=== PATIENT | male | born 1990 | race Caucasian/White ===

== ENCOUNTER → 2017-10-13 15:37 | Outpatient (CLI) | payer OTHER, SELFPAY ==
[2017-10-13 16:01] LABS: INR 2.09 (0.9-1.1); Prothrombin Time 22.7 seconds (9.4-11.8)
== END ==
PROVIDERS: PCP Family Medicine; Visit Provider Physician Assistant Surgical
DX: Z00.00 Encounter for general adult medical examination without abnormal findings (principal); Z79.01 Long term (current) use of anticoagulants; Z51.81 Encounter for therapeutic drug level monitoring; Z95.2 Presence of prosthetic heart valve
CPT/HCPCS: 36415; 85610

== ENCOUNTER → 2017-10-20 08:48 | Outpatient (CLI) | payer OTHER, SELFPAY ==
[2017-10-20 09:43] LABS: INR 2.49 (0.9-1.1); Prothrombin Time 27.2 seconds (9.4-11.8)
== END ==
PROVIDERS: Visit Provider Physician Assistant Surgical
DX: Z79.01 Long term (current) use of anticoagulants (principal); Z51.81 Encounter for therapeutic drug level monitoring; Z45.2 Encounter for adjustment and management of vascular access device
CPT/HCPCS: 36415; 85610; 85730

== ENCOUNTER → 2017-10-27 11:24 | Outpatient (CLI) | payer OTHER, SELFPAY ==
[2017-10-27 13:07] LABS: INR 2.46 (0.9-1.1); Prothrombin Time 26.8 seconds (9.4-11.8)
== END ==
PROVIDERS: Visit Provider Physician Assistant Surgical
DX: Z00.00 Encounter for general adult medical examination without abnormal findings (principal)
CPT/HCPCS: 36415; 85610; 85730

== ENCOUNTER → 2017-11-03 14:43 | Outpatient (CLI) | payer OTHER, SELFPAY ==
[2017-11-03 15:29] LABS: INR 1.86 (0.9-1.1); Prothrombin Time 20.2 seconds (9.4-11.8)
== END ==
PROVIDERS: Visit Provider Physician Assistant Surgical
DX: Z79.01 Long term (current) use of anticoagulants (principal); Z51.81 Encounter for therapeutic drug level monitoring; Z95.2 Presence of prosthetic heart valve
CPT/HCPCS: 36415; 85610

== ENCOUNTER 2017-11-15 07:37 | Outpatient (CLI) | payer OTHER, SELFPAY ==
[2017-11-15 10:41] LABS: PHA INR Fingerstick 1.7 (0.9-1.1)
== END 2017-11-15 11:04 | disposition home or self-care (01) ==
LOC: ACC 07:39
PROVIDERS: Family Provider Family Medicine; PCP Family Medicine; Visit Provider Thoracic Surgery (Cardiothoracic Vascular Surgery)
DX: Z79.01 Long term (current) use of anticoagulants (principal); Z51.81 Encounter for therapeutic drug level monitoring; Z95.2 Presence of prosthetic heart valve
CPT/HCPCS: 85610; G0463

== ENCOUNTER 2017-11-29 07:46 | Outpatient (CLI) | payer OTHER, SELFPAY ==
[2017-11-29 10:46] LABS: PHA INR Fingerstick 1.8 (0.9-1.1)
== END 2017-11-29 10:48 | disposition home or self-care (01) ==
LOC: ACC 07:47
PROVIDERS: Family Provider Family Medicine; PCP Family Medicine; Visit Provider Thoracic Surgery (Cardiothoracic Vascular Surgery)
DX: Z79.01 Long term (current) use of anticoagulants (principal); Z51.81 Encounter for therapeutic drug level monitoring; Z95.2 Presence of prosthetic heart valve
CPT/HCPCS: 85610; 99211; G0463

== ENCOUNTER 2017-12-27 08:15 | Outpatient (CLI) | payer OTHER, SELFPAY ==
[2017-12-27 14:48] LABS: PHA INR Fingerstick 1.5 (0.9-1.1)
== END 2017-12-27 14:54 | disposition home or self-care (01) ==
LOC: ACC 08:16
PROVIDERS: Family Provider Family Medicine; PCP Family Medicine; Visit Provider Thoracic Surgery (Cardiothoracic Vascular Surgery)
DX: Z79.01 Long term (current) use of anticoagulants (principal); Z51.81 Encounter for therapeutic drug level monitoring; Z95.2 Presence of prosthetic heart valve
CPT/HCPCS: 85610; 99211; G0463

== ENCOUNTER 2018-01-17 09:07 | Outpatient (CLI) | payer OTHER, SELFPAY ==
[2018-01-17 10:02] LABS: PHA INR Fingerstick 1.6 (0.9-1.1)
== END 2018-01-17 10:09 | disposition home or self-care (01) ==
LOC: ACC 09:09
PROVIDERS: PCP Family Medicine; Visit Provider Thoracic Surgery (Cardiothoracic Vascular Surgery)
DX: Z00.00 Encounter for general adult medical examination without abnormal findings (principal); Z79.01 Long term (current) use of anticoagulants; Z51.81 Encounter for therapeutic drug level monitoring; Z95.2 Presence of prosthetic heart valve
CPT/HCPCS: 85610; 99211; G0463

== ENCOUNTER 2018-01-31 09:00 | Outpatient (CLI) | payer OTHER, SELFPAY ==
[2018-01-31 09:57] LABS: PHA INR Fingerstick 1.6 (0.9-1.1)
== END 2018-01-31 09:58 | disposition home or self-care (01) ==
LOC: ACC 09:03
PROVIDERS: Family Provider Family Medicine; PCP Family Medicine; Visit Provider Thoracic Surgery (Cardiothoracic Vascular Surgery)
DX: Z79.01 Long term (current) use of anticoagulants (principal); Z51.81 Encounter for therapeutic drug level monitoring; Z95.2 Presence of prosthetic heart valve
CPT/HCPCS: 85610; 99211; G0463

== ENCOUNTER 2018-02-22 08:33 | Outpatient (CLI) | payer OTHER, SELFPAY ==
[2018-02-22 09:43] LABS: PHA INR Fingerstick 1.6 (0.9-1.1)
== END 2018-02-22 10:01 | disposition home or self-care (01) ==
LOC: ACC 08:37
PROVIDERS: PCP Family Medicine; Visit Provider Thoracic Surgery (Cardiothoracic Vascular Surgery)
DX: Z51.81 Encounter for therapeutic drug level monitoring (principal); Z79.01 Long term (current) use of anticoagulants; Z95.2 Presence of prosthetic heart valve
CPT/HCPCS: 85610; 99211; G0463

== ENCOUNTER 2018-03-08 08:56 | Outpatient (CLI) | payer OTHER, SELFPAY ==
[2018-03-08 11:09] LABS: PHA INR Fingerstick 2.1 (0.9-1.1)
== END 2018-03-08 11:11 | disposition home or self-care (01) ==
LOC: ACC 08:57
PROVIDERS: Family Provider Family Medicine; PCP Family Medicine; Visit Provider Thoracic Surgery (Cardiothoracic Vascular Surgery)
DX: Z51.81 Encounter for therapeutic drug level monitoring (principal); Z79.01 Long term (current) use of anticoagulants; Z95.2 Presence of prosthetic heart valve
CPT/HCPCS: 85610; 99211; G0463

== ENCOUNTER 2018-03-29 08:04 | Outpatient (CLI) | payer OTHER, SELFPAY ==
[2018-03-29 13:35] LABS: PHA INR Fingerstick 1.9 (0.9-1.1)
== END 2018-03-29 13:43 | disposition home or self-care (01) ==
LOC: ACC 08:05
PROVIDERS: Family Provider Family Medicine; PCP Family Medicine; Visit Provider Thoracic Surgery (Cardiothoracic Vascular Surgery)
DX: Z51.81 Encounter for therapeutic drug level monitoring (principal); Z79.01 Long term (current) use of anticoagulants; Z95.2 Presence of prosthetic heart valve
CPT/HCPCS: 85610; 99211; G0463

== ENCOUNTER 2018-05-03 09:47 | Outpatient (CLI) | payer OTHER, SELFPAY ==
[2018-05-03 10:36] LABS: PHA INR Fingerstick 1.7 (0.9-1.1)
== END 2018-05-03 12:14 | disposition home or self-care (01) ==
LOC: ACC 09:48
PROVIDERS: PCP Family Medicine; Visit Provider Thoracic Surgery (Cardiothoracic Vascular Surgery)
DX: Z95.2 Presence of prosthetic heart valve (principal)
CPT/HCPCS: 85610; 99211; G0463

== ENCOUNTER 2018-05-31 08:07 | Outpatient (CLI) | payer OTHER, SELFPAY | END 2018-05-31 13:29 | disposition home or self-care (01) | PROVIDERS: PCP Family Medicine; Visit Provider Thoracic Surgery (Cardiothoracic Vascular Surgery) | DX: Z51.81 Encounter for therapeutic drug level monitoring (principal); Z79.01 Long term (current) use of anticoagulants | CPT/HCPCS: 85610; 99211; G0463 ==

== ENCOUNTER 2018-07-12 09:39 | Outpatient (CLI) | payer OTHER, SELFPAY ==
[2018-07-12 16:38] LABS: PHA INR Fingerstick 2.1 (0.9-1.1)
== END 2018-07-12 16:40 | disposition home or self-care (01) ==
LOC: ACC 09:41
PROVIDERS: PCP Family Medicine; Visit Provider Thoracic Surgery (Cardiothoracic Vascular Surgery)
DX: Z51.81 Encounter for therapeutic drug level monitoring (principal); Z79.01 Long term (current) use of anticoagulants; Z00.00 Encounter for general adult medical examination without abnormal findings; Z95.2 Presence of prosthetic heart valve
CPT/HCPCS: 85610; 99211; G0463

== ENCOUNTER 2018-08-17 08:56 | Outpatient (CLI) | payer OTHER, SELFPAY ==
[2018-08-17 09:32] LABS: PHA INR Fingerstick 1.8 (0.9-1.1)
== END 2018-08-17 09:36 | disposition home or self-care (01) ==
LOC: ACC 08:58
PROVIDERS: PCP Family Medicine; Visit Provider Thoracic Surgery (Cardiothoracic Vascular Surgery)
DX: Z51.81 Encounter for therapeutic drug level monitoring (principal); Z79.01 Long term (current) use of anticoagulants; Z95.2 Presence of prosthetic heart valve
CPT/HCPCS: 85610; 99211; G0463

== ENCOUNTER 2018-09-29 13:06 | Outpatient (CLI) | payer OTHER, MEDICAID, SELFPAY | END 2018-09-29 14:57 | disposition home or self-care (01) | LOC: ACC 13:08 | PROVIDERS: PCP Family Medicine; Visit Provider Thoracic Surgery (Cardiothoracic Vascular Surgery) | DX: Z51.81 Encounter for therapeutic drug level monitoring (principal); Z79.01 Long term (current) use of anticoagulants | CPT/HCPCS: 85610; 99211; G0463 ==

== ENCOUNTER 2018-11-24 08:16 | Outpatient (CLI) | payer MEDICAID, SELFPAY ==
[2018-11-24 11:15] LABS: PHA INR Fingerstick 1.5 (0.9-1.1)
== END 2018-11-24 11:19 | disposition home or self-care (01) ==
LOC: ACC 08:19
PROVIDERS: PCP Internal Medicine Adolescent Medicine; Visit Provider Thoracic Surgery (Cardiothoracic Vascular Surgery)
DX: Z00.00 Encounter for general adult medical examination without abnormal findings (principal); Z51.81 Encounter for therapeutic drug level monitoring; Z79.01 Long term (current) use of anticoagulants
CPT/HCPCS: 85610; 99211; G0463

== ENCOUNTER 2018-12-18 11:02 | Outpatient (CLI) | payer MEDICAID, SELFPAY ==
[2018-12-18 11:52] LABS: PHA INR Fingerstick 1.7 (0.9-1.1)
== END 2018-12-18 11:57 | disposition home or self-care (01) ==
LOC: ACC 11:04
PROVIDERS: PCP Internal Medicine Adolescent Medicine; Visit Provider Thoracic Surgery (Cardiothoracic Vascular Surgery)
DX: Z00.00 Encounter for general adult medical examination without abnormal findings (principal); Z51.81 Encounter for therapeutic drug level monitoring; Z79.01 Long term (current) use of anticoagulants
CPT/HCPCS: 85610; 99211; G0463

== ENCOUNTER 2019-01-16 09:14 | Outpatient (CLI) | payer MEDICAID, SELFPAY ==
[2019-01-16 15:06] LABS: PHA INR Fingerstick 1.6 (0.9-1.1)
== END 2019-01-16 15:17 | disposition home or self-care (01) ==
LOC: ACC 09:15
PROVIDERS: PCP Internal Medicine Adolescent Medicine; Visit Provider Internal Medicine Adolescent Medicine
DX: Z51.81 Encounter for therapeutic drug level monitoring (principal); Z79.01 Long term (current) use of anticoagulants
CPT/HCPCS: 85610; 99211; G0463

== ENCOUNTER 2019-02-15 08:22 | Outpatient (CLI) | payer MEDICAID, SELFPAY ==
[2019-02-15 15:23] LABS: PHA INR Fingerstick 1.7 (0.9-1.1)
== END 2019-02-15 15:25 | disposition home or self-care (01) ==
LOC: ACC 08:22
PROVIDERS: PCP Internal Medicine Adolescent Medicine; Visit Provider Internal Medicine Adolescent Medicine
DX: Z95.2 Presence of prosthetic heart valve (principal); Z51.81 Encounter for therapeutic drug level monitoring; Z79.01 Long term (current) use of anticoagulants
CPT/HCPCS: 85610; 99211; G0463

== ENCOUNTER 2019-06-18 08:47 | Outpatient (CLI) | payer MEDICAID, SELFPAY ==
[2019-06-18 14:49] LABS: PHA INR Fingerstick 2.5 (0.9-1.1)
== END 2019-06-18 14:51 | disposition home or self-care (01) ==
PROVIDERS: Visit Provider Internal Medicine Adolescent Medicine
DX: Z95.2 Presence of prosthetic heart valve (principal); Z51.81 Encounter for therapeutic drug level monitoring; Z79.01 Long term (current) use of anticoagulants
CPT/HCPCS: 85610; 99211; G0463

== ENCOUNTER 2019-07-20 09:07 | Outpatient (CLI) | payer OTHER, SELFPAY ==
[2019-07-20 11:23] LABS: PHA INR Fingerstick 2.1 (0.9-1.1)
== END 2019-07-20 11:26 | disposition home or self-care (01) ==
LOC: ACC 09:10
PROVIDERS: PCP Internal Medicine Adolescent Medicine; Visit Provider Internal Medicine Adolescent Medicine
DX: Z95.2 Presence of prosthetic heart valve (principal); Z51.81 Encounter for therapeutic drug level monitoring; Z79.01 Long term (current) use of anticoagulants
CPT/HCPCS: 85610; 99211; G0463

== ENCOUNTER 2019-09-07 08:13 | Outpatient (CLI) | payer OTHER, SELFPAY ==
[2019-09-07 17:04] LABS: PHA INR Fingerstick 2.1 (0.9-1.1)
== END 2019-09-07 17:05 | disposition home or self-care (01) ==
LOC: ACC 08:15
PROVIDERS: PCP Internal Medicine Adolescent Medicine; Visit Provider Internal Medicine Adolescent Medicine
DX: Z51.81 Encounter for therapeutic drug level monitoring (principal); Z79.01 Long term (current) use of anticoagulants; Z95.2 Presence of prosthetic heart valve
CPT/HCPCS: 85610; 99211; G0463

== ENCOUNTER 2019-10-23 08:35 | Outpatient (CLI) | payer OTHER, SELFPAY ==
[2019-10-23 09:39] LABS: PHA INR Fingerstick 2.7 (0.9-1.1)
== END 2019-10-23 09:41 | disposition home or self-care (01) ==
LOC: ACC 08:36
PROVIDERS: PCP Internal Medicine Adolescent Medicine; Visit Provider Internal Medicine Adolescent Medicine
DX: Z51.81 Encounter for therapeutic drug level monitoring (principal); Z79.01 Long term (current) use of anticoagulants
CPT/HCPCS: 85610; 99211; G0463

== ENCOUNTER 2019-12-03 08:44 | Outpatient (CLI) | payer OTHER, SELFPAY ==
[2019-12-03 09:52] LABS: PHA INR Fingerstick 2.2 (0.9-1.1)
== END 2019-12-03 09:56 | disposition home or self-care (01) ==
LOC: ACC 08:46
PROVIDERS: PCP Internal Medicine Adolescent Medicine; Visit Provider Internal Medicine Adolescent Medicine
DX: Z51.81 Encounter for therapeutic drug level monitoring (principal); Z79.01 Long term (current) use of anticoagulants
CPT/HCPCS: 85610; 99211; G0463

== ENCOUNTER 2020-01-14 09:03 | Outpatient (CLI) | payer OTHER, SELFPAY | END 2020-01-14 15:10 | disposition home or self-care (01) | LOC: ACC 09:05 | PROVIDERS: PCP Nurse Practitioner Family; Visit Provider Internal Medicine Adolescent Medicine | DX: Z51.81 Encounter for therapeutic drug level monitoring (principal); Z79.01 Long term (current) use of anticoagulants | CPT/HCPCS: 85610; 99211; G0463 ==

== ENCOUNTER 2020-03-14 08:53 | Outpatient (CLI) | payer OTHER, SELFPAY ==
[2020-03-14 14:34] LABS: PHA INR Fingerstick 2.4 (0.9-1.1)
== END 2020-03-14 14:41 | disposition home or self-care (01) ==
LOC: ACC 08:56
PROVIDERS: PCP Nurse Practitioner Family; Visit Provider Internal Medicine Adolescent Medicine
DX: Z51.81 Encounter for therapeutic drug level monitoring (principal); Z79.01 Long term (current) use of anticoagulants; Z95.2 Presence of prosthetic heart valve
CPT/HCPCS: 85610; 99211; G0463

== ENCOUNTER 2020-06-20 08:56 | Outpatient (CLI) | payer OTHER, SELFPAY ==
[2020-06-20 14:34] LABS: PHA INR Fingerstick 2.1 (0.9-1.1)
== END 2020-06-20 14:36 | disposition home or self-care (01) ==
LOC: ACC 08:58
PROVIDERS: PCP Internal Medicine Adolescent Medicine; Visit Provider Internal Medicine Adolescent Medicine
DX: Z51.81 Encounter for therapeutic drug level monitoring (principal); Z79.01 Long term (current) use of anticoagulants
CPT/HCPCS: 85610; 99211; G0463

== ENCOUNTER 2020-07-05 19:24 | Emergency (ER) | payer OTHER, SELFPAY ==
[2020-07-05 19:40] VITALS: BP 149/89; PULSE 66; RESP 19; TEMP 36.6; O2SAT 98; BMI 25.0
--- NOTE | 2020-07-05 20:24 | HMH.EDUTC ---
[facility] [place] Impression: Spasm of muscle of lower back Disposition: Home, Self-Care Condition on Discharge: Good Instructions: Low Back Pain, DI for Low Back Pain, DI for Muscle Spasm Additional Instructions: * Tylenol every as directed on package if your doctor has told you that you can take it *Ice 20 minutes every 2 hours for the first 48 hours after the initial injury followed by moist heat every 20 minutes 3-4 times a day to affected area *Muscle relaxer every 8 hours as needed for muscle spasms but remember, it WILL cause drowsiness You cannot take it and drive, operate machinery or care for small children. *Keep this area active, no movement leads to more stiffness, However take it easy and avoid heavy lifting pushing or pulling *Follow up with you family doctor if no improvement for further treatment Make sure to follow up with your Family Doctor on Tuesday if no improvement or any worsening of symptoms Return if needed Straight to ER if any loss of control of bowel or bladder Prescriptions: Cyclobenzaprine HCl [Flexeril 10mg tablet] 10 mg PO TID PRN #15 tab PRN Reason: Muscle Spasm Transmission Status: Received by [facility] #[id number] Referrals: Guillermo Smith MD [Primary Care Provider] - As needed Forms: Work/School Release Time of Disposition: 20:40 Medical Decision Making - Dar Inquiry Pt receiving controlled substance: No Dar was queried for this patient: No Vital Signs: 07/05/20 19:40 Temperature 97.8 F Temperature Source Oral Pulse Rate [Right Brachial] 66 Respiratory Rate 19 Blood Pressure [Right Arm] 149/89 H Blood Pressure Mean [Right Arm] 109 Blood Pressure Source [Right Arm] Automatic Cuff Blood Pressure Position [Right Arm] Sitting 02 Sat by Pulse Oximetry 98 Oxygen Delivery Method Room Air Orders (Tests/Meds): ED MEDICATIONS Discontinued Medications Generic Name Dose Route Start Last Admin Trade Name Freq PRN Reason Stop Dose Admin Cyclobenzaprine HCl 10 mg 07/05/20 20:43 07/05/20 20:47 Cyclobenzaprine 10mg Tablet PO 07/05/20 20:44 10 mg ONCE ONE Administration Methylprednisolone Sodium Succinate 125 mg 07/05/20 20:35 07/05/20 20:47 Methylprednisolone Sod Succ 125mg Vial IM 07/05/20 20:36 125 mg ONCE ONE Administration [facility] [place] - General Stated complaint: back pain Time Seen by Provider: 07/05/20 20:24 Mode of Arrival: Ambulatory Source of Information: Patient Limitations: No Limitations Description of Symptoms (Recalled from Triage Doc. by RN): PATIENT C/O LOWER BACK PAIN X 4 DAYS HEENT Symptoms (Recalled from RN notes): No Resp Symptoms (Recalled from RN notes): No Skin Symptoms (Recalled from RN notes): No MS Symptoms (Recalled from RN notes): No Functional Status (Recalled from RN notes): WNL - History of Present Illness Provider Complaint: Patient states that he was working and climbed over a fence several times and thinks he may have pulled something in his lower back State that ever since he has been having pain in his right lower back area that feels like a spasm or catch States that certain ways he moves the pain is worse and feels better if he lays on the floor Denies loss of control of bowel or bladder - Related Data Home Medications Medication Instructions Recorded Confirmed Sertraline HCl [Zoloft 50mg tablet] 50 mg PO DAILY 07/05/20 07/05/20 Warfarin Sodium 8 mg PO DAILY 07/05/20 07/05/20 Warfarin Sodium [Coumadin 1mg 1 mg PO DAILY 07/05/20 07/05/20 tablet] Previous Rx's Medication Instructions Recorded Cyclobenzaprine HCl [Flexeril 10mg 10 mg PO TID PRN #15 tab 07/05/20 tablet] Allergies Allergy/AdvReac Type Severity Reaction Status Date / Time No Known Allergies Allergy Verified 07/05/20 19:57 - Worker's Comp Is this a Worker's Comp case?: No H History - Hepatitis A Screen Drug use history?: No High risk sexual behaviors?: No History of sexually transmit
[2020-07-05 21:03] VITALS: BP 149/89; PULSE 66; RESP 19; TEMP 36.6; O2SAT 98
== END 2020-07-05 21:07 | disposition home or self-care (01) ==
PROVIDERS: Emergency Provider Nurse Practitioner; PCP Internal Medicine Adolescent Medicine
DX: M62.830 Muscle spasm of back (principal); Z95.2 Presence of prosthetic heart valve; R03.0 Elevated blood-pressure reading, without diagnosis of hypertension; Z79.899 Other long term (current) drug therapy
CPT/HCPCS: 96372; 99202; G0463

== ENCOUNTER 2020-10-14 10:57 | Outpatient (CLI) | payer OTHER, SELFPAY ==
[2020-10-14 12:00] LABS: PHA INR Fingerstick 1.8 (0.9-1.1)
== END 2020-10-14 12:05 | disposition home or self-care (01) ==
LOC: ACC 10:58
PROVIDERS: PCP Nurse Practitioner Family; Visit Provider Internal Medicine Adolescent Medicine
DX: Z79.01 Long term (current) use of anticoagulants (principal)
CPT/HCPCS: 85610; 99211; G0463

== ENCOUNTER → 2020-11-07 13:30 | Outpatient (CLI) | payer OTHER, SELFPAY ==
--- NOTE | 2020-11-07 13:34 | MR_ITS ---
PROCEDURE INFORMATION: Exam: MR Lumbar Spine Without Contrast Exam date and time: 11/07/2020 1:34 PM Age: 30 years old Clinical indication: Low back pain; Additional info: Sciatic leg pain. Lbp worse on RT side. RT leg pain, numbness, and tingling. Symptoms x1yr. No injury or trauma. No prior. TECHNIQUE: Imaging protocol: Multiplanar magnetic resonance images of the lumbar spine without intravenous contrast. COMPARISON: No relevant prior studies available. FINDINGS: Vertebrae: See L4-L5 finding. No acute fractures or abnormal bone marrow signal changes are seen. Spinal cord: Normal signal. No cord compression. L1-L2: No significant disc disease. No significant spinal canal stenosis. No neural foraminal stenosis. L2-L3: No significant disc disease. No significant spinal canal stenosis. No neural foraminal stenosis. L3-L4: No significant disc disease. No significant spinal canal stenosis. No neural foraminal stenosis. L4-L5: At the L4-L5 level is mild bilateral facet joint arthropathy. No significant associated spinal or neural foraminal stenosis is seen. L5-S1: At the L5-S1 level is loss of disc height and signal with a mild diffuse disc bulge with central and right neural foraminal focal protrusions causing mild spinal and right neural foraminal stenosis. Mild associated facet joint arthropathy is seen without significant left-sided spurring but there is a small right osteophyte exacerbating the mild right neural foraminal stenosis. Soft tissues: Unremarkable. IMPRESSION: Mild degenerative changes particularly at L5-S1 as above.
== END ==
PROVIDERS: PCP Nurse Practitioner Family; Visit Provider Internal Medicine Adolescent Medicine
DX: M54.30 Sciatica, unspecified side (principal); Z95.2 Presence of prosthetic heart valve
CPT/HCPCS: 72148; 76376

== ENCOUNTER 2020-12-08 13:32 | Outpatient (CLI) | payer OTHER, SELFPAY ==
[2020-12-08 15:45] LABS: PHA INR Fingerstick 1.9 (0.9-1.1)
== END 2020-12-08 15:49 | disposition home or self-care (01) ==
LOC: ACC 13:33
PROVIDERS: PCP Internal Medicine Adolescent Medicine; Visit Provider Internal Medicine Adolescent Medicine
DX: Z51.81 Encounter for therapeutic drug level monitoring (principal); Z79.01 Long term (current) use of anticoagulants
CPT/HCPCS: 85610; 99211; G0463

== ENCOUNTER 2021-03-09 11:49 | Outpatient (CLI) | payer OTHER, SELFPAY ==
[2021-03-09 14:49] LABS: PHA INR Fingerstick 2.3 (0.9-1.1)
== END 2021-03-09 15:07 | disposition home or self-care (01) ==
LOC: ACC 11:49
PROVIDERS: PCP Internal Medicine Adolescent Medicine; Visit Provider Internal Medicine Adolescent Medicine
DX: Z51.81 Encounter for therapeutic drug level monitoring (principal); Z79.01 Long term (current) use of anticoagulants
CPT/HCPCS: 85610; 99211; G0463

== ENCOUNTER 2021-06-03 12:23 | Outpatient (CLI) | payer OTHER, SELFPAY ==
[2021-06-03 14:53] LABS: PHA INR Fingerstick 1.8 (0.9-1.1)
== END 2021-06-03 14:59 | disposition home or self-care (01) ==
LOC: ACC 12:24
PROVIDERS: PCP Nurse Practitioner Family; Visit Provider Internal Medicine Adolescent Medicine
DX: Z51.81 Encounter for therapeutic drug level monitoring (principal); Z79.01 Long term (current) use of anticoagulants; Z95.2 Presence of prosthetic heart valve
CPT/HCPCS: 85610; 99211; G0463

== ENCOUNTER 2021-07-15 08:26 | Outpatient (CLI) | payer OTHER, SELFPAY ==
[2021-07-15 15:08] LABS: PHA INR Fingerstick 2.5 (0.9-1.1)
== END 2021-07-15 15:24 | disposition home or self-care (01) ==
LOC: ACC 08:27
PROVIDERS: PCP Internal Medicine Adolescent Medicine; Visit Provider Internal Medicine Adolescent Medicine
DX: Z51.81 Encounter for therapeutic drug level monitoring (principal); Z79.01 Long term (current) use of anticoagulants; Z95.2 Presence of prosthetic heart valve
CPT/HCPCS: 85610; 99211; G0463

== ENCOUNTER 2021-09-10 09:16 | Outpatient (CLI) | payer OTHER, SELFPAY ==
[2021-09-10 12:32] LABS: PHA INR Fingerstick 2.2 (0.9-1.1)
== END 2021-09-10 12:33 | disposition home or self-care (01) ==
PROVIDERS: PCP Internal Medicine Adolescent Medicine; Visit Provider Internal Medicine Adolescent Medicine
DX: Z51.81 Encounter for therapeutic drug level monitoring (principal); Z79.01 Long term (current) use of anticoagulants; Z95.2 Presence of prosthetic heart valve
CPT/HCPCS: 85610; 99211; G0463

== ENCOUNTER 2021-12-11 08:31 | Outpatient (CLI) | payer OTHER, SELFPAY | END 2021-12-11 14:37 | disposition home or self-care (01) | LOC: ACC 08:32 | PROVIDERS: PCP Internal Medicine Adolescent Medicine; Visit Provider Internal Medicine Adolescent Medicine | DX: Z51.81 Encounter for therapeutic drug level monitoring (principal); Z79.01 Long term (current) use of anticoagulants | CPT/HCPCS: 85610; 99211; G0463 ==

== ENCOUNTER 2022-04-23 09:34 | Outpatient (CLI) | payer OTHER, SELFPAY ==
[2022-04-23 15:12] LABS: PHA INR Fingerstick 2.1 (0.9-1.1)
== END 2022-04-23 15:37 ==
LOC: ACC 09:34
PROVIDERS: PCP Internal Medicine Adolescent Medicine; Visit Provider Internal Medicine Adolescent Medicine
DX: Z51.81 Encounter for therapeutic drug level monitoring (principal); Z79.01 Long term (current) use of anticoagulants; Z95.2 Presence of prosthetic heart valve
CPT/HCPCS: 85610; 99211; G0463

== ENCOUNTER 2022-06-11 09:21 | Outpatient (CLI) | payer OTHER, SELFPAY ==
[2022-06-11 16:09] LABS: PHA INR Fingerstick 2.5 (0.9-1.1)
== END 2022-06-11 16:30 ==
LOC: ACC 09:22
PROVIDERS: PCP Internal Medicine Adolescent Medicine; Visit Provider Internal Medicine Adolescent Medicine
DX: Z51.81 Encounter for therapeutic drug level monitoring (principal); Z79.01 Long term (current) use of anticoagulants; Z95.2 Presence of prosthetic heart valve
CPT/HCPCS: 85610; 99211; G0463

== ENCOUNTER → 2022-08-30 10:23 | Outpatient (CLI) | payer OTHER, SELFPAY ==
[2022-08-30 11:30] LABS: Basophils # 0.1 K/mm3 (0-0.2); Basophils % 0.9 % (0.1-2.0); Eosinophils # 0.3 K/mm3 (0.0-0.4); Eosinophils % 4.6 % (0.1-12.0); Hemoglobin 15.4 g/dL (14.1-18.0); Lymphocytes # 2.1 K/mm3 (0.7-4.5); Lymphocytes % 30.5 % (10-50); Mean Corpuscular HGB Conc 31.5 g/dL (31.8-35.4); Mean Corpuscular Hemoglobin 29.4 pg (27.0-31.2); Mean Corpuscular Volume 93.5 fl (80-94); Monocytes # 0.3 K/mm3 (0.1-1.0); Platelet Count 299 K/mm3 (142-424); Red Blood Count 5.24 M/mm3 (4.60-6.20); Red Cell Distribution Width 13.9 % (11.5-17.5); White Blood Count 6.7 K/mm3 (4.8-10.8)
[2022-08-30 11:50] LABS: Chloride 103 mmol/L (98-107)
[2022-08-30 11:51] LABS: Potassium 4.6 mmoL/L (3.5-5.1); Sodium 138 mmol/L (136-145)
[2022-08-30 11:53] LABS: Alanine Aminotransferase 19 U/L (12-78); Anion Gap 12.6 mEq/L (5-15); Aspartate Amino Transferase 30 U/L (17-59); Blood Urea Nitrogen 15 mg/dl (9-20); Carbon Dioxide 27 mmol/L (22.0-30.0); Estimated Glomerular Filt Rate 98 ml/min (>60); GFR (African American) 118 ML/MIN (>60)
[2022-08-30 11:54] LABS: Albumin Level 4.5 g/dl (3.5-5.0); Albumin/Globulin Ratio 1.8 (1.1-1.8); Alkaline Phosphatase 54 U/L (38-126); Bilirubin,Total 0.5 mg/dl (0.2-1.3); Chol/HDL Ratio 3.5 (1-3.5); Cholesterol 187 mg/dl (140-200); Globulin 2.5 g/dL (1.3-3.2); Glucose 81 mg/dl (74-100); HDL Cholesterol 54 mg/dl (40-60); Triglycerides 142 mg/dl (30-150); VLDL Cholesterol 28 mg/dL (0-40)
[2022-08-30 12:05] LABS: INR 1.56 (0.9-1.1); Prothrombin Time 16.4 seconds (10.1-12.5)
[2022-08-30 12:49] LABS: Direct LDL Cholesterol 103.86 mg/dL (100-129)
== END ==
PROVIDERS: PCP Nurse Practitioner Family; Visit Provider Nurse Practitioner Family
DX: Z00.00 Encounter for general adult medical examination without abnormal findings (principal); Z95.2 Presence of prosthetic heart valve
CPT/HCPCS: 36415; 80053; 80061; 85025; 85610

== ENCOUNTER 2023-03-02 08:10 | Outpatient (CLI) | payer OTHER, SELFPAY ==
[2023-03-02 08:32] LABS: PHA INR Fingerstick 1.5 (0.9-1.1)
== END 2023-03-02 08:34 ==
LOC: ACC 08:11
PROVIDERS: PCP Internal Medicine Adolescent Medicine; Visit Provider Internal Medicine Adolescent Medicine
DX: Z51.81 Encounter for therapeutic drug level monitoring (principal); Z79.01 Long term (current) use of anticoagulants; Z95.2 Presence of prosthetic heart valve
CPT/HCPCS: 85610; 99211; G0463

== ENCOUNTER 2023-03-11 08:11 | Outpatient (CLI) | payer OTHER, SELFPAY ==
[2023-03-11 15:18] LABS: PHA INR Fingerstick 1.5 (0.9-1.1)
== END 2023-03-11 15:20 ==
LOC: INF 08:13 → ACC 08:15
PROVIDERS: PCP Nurse Practitioner Family; Visit Provider Nurse Practitioner Family
DX: Z51.81 Encounter for therapeutic drug level monitoring (principal); Z79.01 Long term (current) use of anticoagulants; Z95.2 Presence of prosthetic heart valve
CPT/HCPCS: 85610; 99211; G0463

== ENCOUNTER 2023-04-08 10:47 | Outpatient (CLI) | payer OTHER, SELFPAY ==
[2023-04-08 14:11] LABS: PHA INR Fingerstick 2.3 (0.9-1.1)
== END 2023-04-08 14:19 ==
LOC: ACC 10:48
PROVIDERS: PCP Nurse Practitioner Family; Visit Provider Internal Medicine Adolescent Medicine
DX: Z51.81 Encounter for therapeutic drug level monitoring (principal); Z79.01 Long term (current) use of anticoagulants; Z95.2 Presence of prosthetic heart valve
CPT/HCPCS: 85610; 99211; G0463

== ENCOUNTER 2023-04-20 08:11 | Emergency (ER) | payer OTHER, SELFPAY ==
[2023-04-20 08:30] VITALS: BP 139/84; PULSE 79; RESP 18; TEMP 37; O2SAT 97; BMI 22.4
--- NOTE | 2023-04-20 08:36 | EXP.UTC ---
Discharge Plan Disposition Patient Disposition: Home, Self-Care Condition: Good Prescriptions Prescriptions: New amoxicillin [amoxicillin] 875 mg tablet 875 mg PO Q12H Qty: 20 0RF benzonatate [benzonatate] 100 mg capsule 100 mg PO TIDP PRN (Reason: Cough) Qty: 30 0RF methylprednisolone 4 mg Tablets,Dose Pack 4 mg PO DIRECTED Qty: 21 0RF No Action warfarin 4 MG tablet 8 mg PO DAILY Rx Instructions: 10 MG TOTAL MWF 9 MG STRS warfarin 1 MG tablet 1 mg PO DAILY Rx Instructions: 10 MG TOTAL MWF 9 MG STRS sertraline 100 mg tablet 100 mg PO DAILY Patient Comments: TAKE 1 TABLET BY MOUTH ONCE DAILY Referrals Follow up/Referrals: Guillermo Smith MD [Primary Care Provider] - See instructions Activity Restrictions/Add. Instructions Additional Instructions/Restrictions: Drink plenty of fluids. Take tylenol or ibuprofen for pain or fever. Take the medications as directed. Follow up with your regular doctor. GO TO THE ER FOR ANY WORSENING SYMPTOMS Clinical Impressions Clinical Impression: Sinusitis Instructions Patient Instructions: Sinusitis, DI for Sinusitis, Dexamethasone Injection Discharge ED Provider: Vitor Iglesias [facility] General Stated complaint: head congestion, sore throat,headache Time Seen by Provider: 04/20/23 08:36 History of Present Illness Provider Complaint: He states that for the past 1 week he has had sinus congestion. He states that his symptoms are worsening. He now has a productive cough with yellowish sputum. Related Data Home Medications Medication Instructions Recorded Confirmed warfarin 1 mg tablet 1 mg PO DAILY ARTIFICIAL VALVE 07/05/20 04/20/23 warfarin 4 mg tablet 8 mg PO DAILY ARTIFICIAL VALVE 07/05/20 04/20/23 sertraline 100 mg tablet 100 mg PO DAILY 04/20/23 04/20/23 Previous Rx's Medication Instructions Recorded amoxicillin 875 mg tablet 875 mg PO Q12H #20 tabs 04/20/23 benzonatate 100 mg capsule 100 mg PO TIDP PRN Cough #30 caps 04/20/23 methylprednisolone 4 mg tablets in 4 mg PO DIRECTED #21 tabs 04/20/23 a dose pack Allergies Allergy/AdvReac Type Severity Reaction Status Date / Time No Known Allergies Allergy Verified 04/20/23 08:45 [facility] Disclaimer: The information contained in this section may have been updated after the patient was seen, as this information can be updated by other users. Social History Smoking Status: Never smoker alcohol intake: never current occupational status: other Travel in the last 8 weeks: None ROS Obtained: Yes All systems reviewed & no additional complaints except as documented Constitutional Constitutional: Reports poor appetite Eyes Eyes: Reports system reviewed and no additional complaints, except as documented ENT Ears, Nose, Mouth, and Throat: Reports as per HPI Cardiovascular Cardiovascular: Reports system reviewed and no additional complaints, except as documented and Denies chest pain Respiratory Respiratory: Denies shortness of breath, Denies chest congestion, Reports cough, Denies stridor and Denies wheezing Gastrointestinal Gastrointestingal: Reports system reviewed and no additional complaints, except as documented; Denies abdominal pain, diarrhea or vomiting Musculoskeletal Musculoskeletal: Reports system reviewed and no additional complaints, except as documented and Denies arthralgias Integumentary/Breasts Skin/Breast: Reports system reviewed and no additional complaints, except as documented and Denies rash Neurologic Neurologic: Denies paresthesias Allergic/Immunologic Allergic/Immunologic: Denies wheezing Physical Exam General General appearance: alert and in no apparent distress Eye Eye exam: Present normal appearance, PERRL and EOMI ENT ENT exam: Present mucous membranes moist and normal external ear exam Expanded ENT Exam External ear exam: Present normal external inspection TM/Canal exam: Bilateral TM
[2023-04-20 08:45] LABS: UTC Influenza A Antigen Negative (Negative); UTC Influenza B Antigen Negative (Negative); UTC Strep Screen (Rapid) Negative (Negative)
[2023-04-20 09:28] VITALS: BP 129/84; PULSE 79; RESP 18; TEMP 37; O2SAT 97
== END 2023-04-20 09:28 | disposition home or self-care (01) ==
PROVIDERS: Emergency Provider Nurse Practitioner Family; PCP Internal Medicine Adolescent Medicine
DX: J01.90 Acute sinusitis, unspecified (principal)
CPT/HCPCS: 87635; 87804; 87880; 99212; 99214; G0463

== ENCOUNTER 2023-05-27 18:09 | Emergency (ER) | payer OTHER, SELFPAY ==
[2023-05-27 18:25] VITALS: BP 118/72; PULSE 86; RESP 18; TEMP 37.3; O2SAT 96; BMI 27.7
--- NOTE | 2023-05-27 18:55 | EXP.UTC ---
Discharge Plan Disposition Patient Disposition: Home, Self-Care Condition: Good Prescriptions Prescriptions: New cefdinir 300 mg capsule 300 mg PO BID Qty: 20 0RF guaifenesin [Mucinex] 600 mg tablet extended release 12hr 1,200 mg PO BID PRN (Reason: cough) Qty: 20 0RF benzonatate 100 mg capsule 100 mg PO TID PRN (Reason: cough) Qty: 30 0RF No Action warfarin 4 MG tablet 8 mg PO DAILY Rx Instructions: 10 MG TOTAL MWF 9 MG STRS warfarin 1 MG tablet 1 mg PO DAILY Rx Instructions: 10 MG TOTAL MWF 9 MG STRS Referrals Follow up/Referrals: Daphnie Goss APRN [Primary Care Provider] - See instructions Activity Restrictions/Add. Instructions Additional Instructions/Restrictions: Start antibiotic today. Be sure to complete entire prescription even if feeling better Monitor temp. Tylenol every 4 hours as needed and / or ibuprofen every 6 hours as needed ( As long as your primary care physician has told you that it ok to take both. For fever/aches/pains ER if no less than 101 despite Tylenol or Motrin Humidifier/vaporizer or hot steamy shower Mucinex during the day for your cough and cough suppressant only at night. Be sure to drink lots of water. Insurance may not cover a prescriptions for mucinex. Might be cheaper to get 400mg tablets and take 2 tablet in the morning, mid-day and evening with lots of water. Tessalon Perles will not cause drowsiness but use at bedtime to help stop cough so that you may get some rest. For the next 2 days take 1/2 of your Regular Warfarin dose then call [facility] on Tuesday Follow up IMMEDIATELY for new or worsening of symptoms OR no noticeable improvement over the next 48-72 hours. 911 immediately for any life threatening symptoms such as chest pain or difficulty breathing Clinical Impressions Clinical Impression: Bronchitis Sinusitis Qualifiers: Sinusitis location: unspecified location Chronicity: unspecified Qualified Code(s): J32.9 - Chronic sinusitis, unspecified Instructions Patient Instructions: Sinusitis, Acute Bronchitis, DI for Sinusitis Discharge ED Provider: Ivonne Hunter [facility] [place] General Stated complaint: SOA, cough, congestion Mode of Arrival: Ambulatory Source of Information: Patient Limitations: No Limitations Time Seen by Provider: 05/27/23 19:02 Description of Symptoms (Recalled from Triage Doc. by RN): Pt stated that he was seen here about 3 weeks ago and has not gotten better. Hi symptoms are ear pain, SOB, and feel like he has chest congestion. HEENT Symptoms (Recalled from RN notes): Yes Resp Symptoms (Recalled from RN notes): No Skin Symptoms (Recalled from RN notes): No MS Symptoms (Recalled from RN notes): No Functional Status (Recalled from RN notes): n/a History of Present Illness Provider Complaint: Patient states that he was seen and treated about 3wks ago for sinus infection and doesnt feel like he got over it States that he is still having bilateral ear pain and pressure, sinus pain and pressure, feeling a little short of breath at times and after coughing States he feels like it is trying to move into his chest so tonight he came in to get it checked before it got worse Related Data Home Medications Medication Instructions Recorded Confirmed warfarin 1 mg tablet 1 mg PO DAILY ARTIFICIAL VALVE 07/05/20 05/27/23 warfarin 4 mg tablet 8 mg PO DAILY ARTIFICIAL VALVE 07/05/20 05/27/23 Previous Rx's Medication Instructions Recorded benzonatate 100 mg capsule 100 mg PO TID PRN cough #30 caps 05/27/23 cefdinir 300 mg capsule 300 mg PO BID #20 caps 05/27/23 guaifenesin 600 mg tablet, 1,200 mg PO BID PRN cough #20 tabs 05/27/23 extended release 12 hr (Mucinex) Allergies Allergy/AdvReac Type Severity Reaction Status Date / Time No Known Allergies Allergy Verified 05/27/23 18:44 Worker's Comp Is this a Worker's Comp case?: No PFSH PFSH
--- NOTE | 2023-05-27 19:01 | XR_ITS ---
PROCEDURE INFORMATION: Exam: XR Chest Exam date and time: 05/27/2023 6:59 PM Age: 32 years old Clinical indication: Cough; Prior surgery; Surgery date: 6+ months; Surgery type: Valve replacement; Additional info: Cough/congestion TECHNIQUE: Imaging protocol: Radiologic exam of the chest. Views: 2 views. COMPARISON: No relevant prior studies available. FINDINGS: Lungs: The lungs appear clear. No focal areas of consolidation. Pleural spaces: No pleural effusions. Negative for pneumothorax. Heart/Mediastinum: Cardiac silhouette and pulmonary vasculature are within range of normal. Sternal suture wires are in place suggesting prior median sternotomy and postoperative changes are present involving the mediastinum. A cardiac prosthetic valve is present. Bones/joints: There is no evidence of acute fracture. IMPRESSION: Negative for an acute cardiopulmonary abnormality.
[2023-05-27 19:32] LABS: UTC Influenza A Antigen Negative (Negative); UTC Influenza B Antigen Negative (Negative); UTC Strep Screen (Rapid) Negative (Negative)
[2023-05-27 20:16] VITALS: BP 118/72; PULSE 86; RESP 18; TEMP 37.3; O2SAT 96
== END 2023-05-27 20:16 | disposition home or self-care (01) ==
PROVIDERS: Emergency Provider Nurse Practitioner; PCP Nurse Practitioner Family
DX: J20.9 Acute bronchitis, unspecified (principal); J01.90 Acute sinusitis, unspecified; R06.02 Shortness of breath; H92.09 Otalgia, unspecified ear; R05.9 Cough, unspecified; R09.89 Other specified symptoms and signs involving the circulatory and respiratory systems; R07.0 Pain in throat; Z79.01 Long term (current) use of anticoagulants
CPT/HCPCS: 71046; 87635; 87804; 87880; 96372; 99212; 99214; G0463

== ENCOUNTER 2023-05-31 10:22 | Outpatient (CLI) | payer OTHER, SELFPAY ==
[2023-05-31 13:49] LABS: PHA INR Fingerstick 2.2 (0.9-1.1)
== END 2023-05-31 14:37 ==
LOC: ACC 10:23
PROVIDERS: PCP Nurse Practitioner Family; Visit Provider Internal Medicine Adolescent Medicine
DX: Z51.81 Encounter for therapeutic drug level monitoring (principal); Z79.01 Long term (current) use of anticoagulants; Z95.2 Presence of prosthetic heart valve
CPT/HCPCS: 85610; 99211; G0463

== ENCOUNTER 2023-06-14 08:46 | Outpatient (CLI) | payer OTHER, SELFPAY ==
[2023-06-14 14:27] LABS: PHA INR Fingerstick 2.6 (0.9-1.1)
== END 2023-06-14 15:08 ==
LOC: ACC 08:48
PROVIDERS: PCP Nurse Practitioner Family; Visit Provider Nurse Practitioner Family
DX: Z51.81 Encounter for therapeutic drug level monitoring (principal); Z79.01 Long term (current) use of anticoagulants; Z95.2 Presence of prosthetic heart valve
CPT/HCPCS: 85610; 99211; G0463

== ENCOUNTER → 2023-06-17 11:07 | Outpatient (POV) | payer OTHER, SELFPAY ==
--- NOTE | 2023-06-17 12:06 | EXP.PAIN.OV ---
HPI Data of Consult Patient: new to practice Consult date: 06/17/23 Requesting Physician: Gail Quintana APRN Primary Care Provider: Daphnie Goss APRN Consult Narrative Reason for consult: Low back pain History of present illness: Mr. Conway is a 32 year old male who presents today as a new patient. He is a referral from Daphnie Chávez office. Today he rates his pain a 7 out of 10. Patient states his pain is all in his low back and denies any radiating symptoms into his legs. Patient states this has been going on for at least the last few years and unrelated to any specific trauma or injury. He does state when he was younger he did used to ride bulls and that there was an episode where he did fall and was stepped on which may have played a role in his pain symptoms. 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 Patient does describe this as a aching sensation with occasional sharp shooting pains. He states over the last few years she has tried Tylenol and ibuprofen along with heat and ice and topicals with minimal relief. Patient denies any previous back surgery or injection history. He does state the pain can interfere with his ability perform activities of daily living such as cooking and cleaning. 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 His Dar has been reviewed and is appropriate. CC: Gail Quintana APRN [facility] Disclaimer: The information contained in this section may have been updated after the patient was seen, as this information can be updated by other users. Social History Smoking Status: Never smoker alcohol intake: never current occupational status: other Travel in the last 8 weeks: None Review of Systems Review of Systems Review of systems:: pertinent systems reviewed and negative unless documented below Review of systems (narrative): Review of Systems: General: No recent weight changes, no fever, no sleep disturbances Respiratory: No cough, no shortness of air, no recurring pulmonary infections Cardiovascular/peripheral vascular: No chest pain, no palpitations, no edema, no shortness of breath Gastrointestinal: No new onset incontinence, normal bowel movements reported Genitourinary: No new onset incontinence Musculoskeletal: Low back pain Psychiatric: [Normal mood/affect] Neurological: [Denies weakness in extremities], [denies balance issues] Meds Home Medications and Allergies Home Medications Medication Instructions Recorded Confirmed Type warfarin 1 mg tablet 1 mg PO DAILY ARTIFICIAL VALVE 07/05/20 05/27/23 History warfarin 4 mg tablet 8 mg PO DAILY ARTIFICIAL VALVE 07/05/20 05/27/23 History benzonatate 100 mg capsule 100 mg PO TID PRN cough #30 caps 05/27/23 Rx cefdinir 300 mg capsule 300 mg PO BID #20 caps 05/27/23 Rx guaifenesin 600 mg tablet, 1,200 mg PO BID PRN cough #20 tabs 05/27/23 Rx extended release 12 hr (Mucinex) New Prescriptions to Start Prescriptions: Allergies Allergy/AdvReac Type Severity Reaction Status Date / Time No Known Allergies Allergy Verified 05/27/23 18:44 Objective Narrative: Physical Exam: General: Alert and oriented x3, no acute distress, pleasant and cooperative Lungs: Respirations even and unlabored, symmetrical chest expansion Eyes: PERRL Musculoskeletal: Flexion and extension of lumbar [spine] somewhat guarded secondary to pain, [antalgic gait noted] positive Kemps test Neurological: Speech clear, no gross sensory deficit Additional findings Additional findings: PROCEDURE INFORMATION: Exam: MR Lumbar Spine Without Contrast Exam date and time: 11/07/2020 1:34 PM Age: 30 years old Clinical indication: Low back pain; Additional info: Sciatic leg pain. Lbp worse on RT side. RT leg pain, numbness, and tingling. Symptoms x1yr. No injury or trauma. No prior. TECHNIQUE: Imaging protocol: Multiplanar magnetic resonance images of the lumbar spine without intravenous contrast. COMPARISON: No relevant prior studies available. FINDINGS: Vertebrae: See L4-L5 finding. No acute fractures or abnormal bone marrow signal changes are seen. Spinal cord: Normal signal. No cord compression. L1-L2: No significant disc disease. No significant spinal canal stenosis. No neural foraminal stenosis. L2-L3: No significant disc disease. No significant spinal canal stenosis. No neural foraminal stenosis. L3-L4: No significant disc disease. No significant spinal canal stenosis. No neural foraminal stenosis. L4-L5: At the L4-L5 level is mild bilateral facet joint arthropathy. No significant associated spinal or neural foraminal stenosis is seen. L5-S1: At the L5-S1 level is loss of disc height and signal with a mild diffuse disc bulge with central and right neural foraminal focal protrusions causing mild spinal and right neural foraminal stenosis. Mild associated facet joint arthropathy is seen without significant left-sided spurring but there is a small right osteophyte exacerbating the mild right neural foraminal stenosis. Soft tissues: Unremarkable. IMPRESSION: Mild degenerative changes particularly at L5-S1 as above. Assessment and Plan *Assessment and plan (1) Degenerative disc disease, lumbar: Status: Acute Category: Medical Code(s): M51.36 - Other intervertebral disc degeneration, lumbar region (2) Lumbar facet arthropathy: Status: Acute Category: Medical Code(s): M47.816 - Spondylosis without myelopathy or radiculopathy, lumbar region (3) Lumbar spondylosis: Status: Acute Category: Medical Code(s): M47.816 - Spondylosis without myelopathy or radiculopathy, lumbar region (4) Low back pain: Status: Acute Qualifiers: Chronicity: chronic Back pain laterality: bilateral Sciatica presence: without sciatica Qualified Code(s): M54.50 - Low back pain, unspecified; G89.29 - Other chronic pain Category: Medical Code(s): M54.50 - Low back pain, unspecified Plan Patient is experiencing worsening pain in his low back with limited range of motion and a positive Kemps test. I have discussed with the patient that he may benefit from a lumbar medial branch block. Risk and benefits were discussed with the patient and he would like to proceed forward with this plan of care. Patient has tried and failed conservative treatment such as oral medication, heat and ice, topicals, at home stretching exercise for longer than 6 weeks. Patient did have degenerative disc disease most notably at the L5-S1 level with bone spurs and facet arthropathy present. Patient is on warfarin for a artificial heart valve. I have discussed with the patient that he will have to stop this medication prior to this injection. We will reach out to the Coumadin clinic and confirm that this medication can be temporarily stopped. Patient will be scheduled for a lumbar medial branch block bilaterally L4-L5 and L5-S1. This injection will be done under fluoroscopic guidance to confirm placement. Patient has been counseled to contact our office with any questions or concerns before their next appointment date. This note has been dictated using voice recognition software and may contain errors or omissions. Dr. Baum has read this note and agrees with this plan of care.
[2023-06-17 12:16] VITALS: BP 153/91; PULSE 67; RESP 18; O2SAT 97; BMI 26.5
== END ==
LOC: SC.PAIN 11:07
PROVIDERS: PCP Nurse Practitioner Family; Visit Provider Nurse Practitioner Family
DX: M51.36 Other intervertebral disc degeneration, lumbar region (principal); M47.816 Spondylosis without myelopathy or radiculopathy, lumbar region; M54.50 Low back pain, unspecified; G89.29 Other chronic pain
CPT/HCPCS: 99202; G0463

== ENCOUNTER 2023-07-19 12:41 | Day surgery (SDC) | payer OTHER, SELFPAY ==
[2023-07-19 13:00] VITALS: BP 139/79; PULSE 56; RESP 16; TEMP 36.4; O2SAT 97; BMI 26.4
[2023-07-19 13:18] LABS: INR 1.12 (0.9-1.1)
[2023-07-19] MEDS: methylPREDNISolone ACETATE 80MG/ML VIAL 80 MG (13:31)
[2023-07-19 13:32] VITALS: BP 123/72; PULSE 53; RESP 18; O2SAT 97
[2023-07-19] MEDS: BUPIVACAINE 0.25% 10ML INJ 25 MG IJ (13:32)
[2023-07-19] MEDS: LIDOCAINE 1% 5ML PF VIAL 5 ML (13:32)
[2023-07-19 13:34] VITALS: BP 124/84; PULSE 53; RESP 18; O2SAT 97
--- NOTE | 2023-07-19 13:34 | EXP.PAIN.PRO ---
Procedure Date: 07/19/23 Time: 13:15 Anesthesiologist:: Fermin Mantilla CRNA Complications:: None Pre-procedure Diagnosis:: Degenerative disc lumbar spine multilevels. Lumbar radiculopathy. Lumbar spondylosis. Multilevel lumbar facet arthropathy. Post-procedure Diagnosis:: Same. Indications for Procedure:: Patient is a very pleasant 32-year-old male comes our clinic today for lumbar medial branch block/facet injections bilateral L4-5, L5-S1. Patient reports low back pain he describes as constant, dull, aching. Patient reports having difficulty with flexion, extension, left and right rotation. He rates his pain 7/10. Procedure Details:: Informed consent was obtained and the risk and benefits of the procedure was explained to the patient. Patient was taken to the procedure room where noninvasive monitors were placed, including noninvasive blood pressure cuff as well as pulse oximeter. The area over the lumbar spine was cleansed using chlorhexidine as a cleansing solution. I anesthetized the skin and subcutaneous tissues with 1% Lidocaine. I placed 22-gauge spinal needles into the facet joint/ medial branches of [L3-L4, L4-L5, and L5-S1] bilaterally. Needle placement was confirmed with fluoroscopy. After confirmation of needle placement, each site was injected with 1 mL of 1% lidocaine and 0.25 % Marcaine and 10 mg of Depo-Medrol. A total of 80 mg of depo medrol was used for bilateral medial branch blocks of [L3-L4, L4-L5, and L5-S1] bilaterally. Patient tolerated the procedure without difficulty. There were no complications. Plan and Disposition:: Patient was discharged without incident.
[2023-07-19 13:39] VITALS: BP 123/72; PULSE 78; RESP 18; O2SAT 97
== END 2023-07-19 13:34 | disposition home or self-care (01) ==
PROVIDERS: PCP Nurse Practitioner Family; Visit Provider Nurse Anesthetist, Certified Registered
DX: M47.896 Other spondylosis, lumbar region (principal); M51.16 Intervertebral disc disorders with radiculopathy, lumbar region
CPT/HCPCS: 64493; 64494; 85610; J1040

== ENCOUNTER 2023-07-25 09:36 | Outpatient (CLI) | payer OTHER, SELFPAY ==
[2023-07-25 10:50] LABS: PHA INR Fingerstick 1.5 (0.9-1.1)
== END 2023-07-25 10:52 ==
LOC: ACC 09:36
PROVIDERS: PCP Nurse Practitioner Family; Visit Provider Nurse Practitioner Family
DX: Z51.81 Encounter for therapeutic drug level monitoring (principal); Z79.01 Long term (current) use of anticoagulants; Z95.2 Presence of prosthetic heart valve
CPT/HCPCS: 85610; 99211; G0463

== ENCOUNTER 2023-08-05 11:46 | Outpatient (POV) | payer OTHER, SELFPAY ==
--- NOTE | 2023-08-05 12:05 | EXP.PAIN.SOA ---
[facility] Pain Management SOAP Note Subjective:: Patient is a pleasant 32-year-old male who presents today for follow-up of his lumbar medial branch block bilaterally L4-L5 and L5-S1 on 07/19/2023. We are currently treating the patient for degenerative disc disease of lumbar spine with lumbar facet arthropathy and lumbar spondylosis. Today he rates his pain a 2 out of 10. Patient states he had at least 70% improvement following this injection and feels like it is still providing good relief. Patient states he has been able to increase his activity with decreased pain symptoms and feels overall more functional. His Dar has been reviewed and is appropriate. Review of Systems: General: No recent weight changes, no fever, no sleep disturbances Respiratory: No cough, no shortness of air, no recurring pulmonary infections Cardiovascular/peripheral vascular: No chest pain, no palpitations, no edema, no shortness of breath Gastrointestinal: No new onset incontinence, normal bowel movements reported Genitourinary: No new onset incontinence Musculoskeletal: Low back pain Psychiatric: [Normal mood/affect] Neurological: [Denies weakness in extremities], [denies balance issues] Objective:: Physical Exam: General: Alert and oriented x3, no acute distress, pleasant and cooperative Lungs: Respirations even and unlabored, symmetrical chest expansion Eyes: PERRL Musculoskeletal: Flexion and extension of lumbar [spine] somewhat guarded secondary to pain, [antalgic gait noted] Neurological: Speech clear, no gross sensory deficit Assessment:: Degenerative disc disease of lumbar spine with lumbar facet arthropathy, lumbar spondylosis Plan:: Patient has had significant improvement following his lumbar medial branch block and does not require any additional injection therapy. Patient will return to clinic in 1 month for reevaluation of symptoms and plan of care. Patient has been instructed to contact the clinic with any concerns before the next appointment. Dr. Baum has reviewed this note and agrees with this plan of care. This note was dictated using voice recognition software and make contain errors or omissions. [facility] Disclaimer: The information contained in this section may have been updated after the patient was seen, as this information can be updated by other users. Medical History Anxiety Bicuspid cardiac valve Depression Family History Other No significant family history Social History Smoking Status: Never smoker alcohol intake: never current occupational status: employed Travel in the last 8 weeks: None
[2023-08-05 13:00] VITALS: BP 140/77; PULSE 53; RESP 18; O2SAT 97; BMI 26.4
== END 2023-08-05 23:59 ==
LOC: SC.PAIN 11:46
PROVIDERS: PCP Nurse Practitioner Family; Visit Provider Nurse Practitioner Family
DX: M51.16 Intervertebral disc disorders with radiculopathy, lumbar region (principal); M47.26 Other spondylosis with radiculopathy, lumbar region
CPT/HCPCS: 99212; G0463

== ENCOUNTER 2023-08-31 08:04 | Outpatient (CLI) | payer OTHER, SELFPAY ==
[2023-08-31 10:23] LABS: PHA INR Fingerstick 1.7 (0.9-1.1)
== END 2023-08-31 11:39 ==
LOC: ACC 08:04
PROVIDERS: Nurse Practitioner Family; PCP Internal Medicine Adolescent Medicine; Visit Provider Internal Medicine Adolescent Medicine
DX: Z51.81 Encounter for therapeutic drug level monitoring (principal); Z79.01 Long term (current) use of anticoagulants; Z95.2 Presence of prosthetic heart valve
CPT/HCPCS: 85610; 99211; G0463

== ENCOUNTER 2023-11-22 09:21 | Outpatient (CLI) | payer OTHER, SELFPAY ==
[2023-11-22 11:08] LABS: PHA INR Fingerstick 2.1 (0.9-1.1)
== END 2023-11-22 11:26 ==
LOC: ACC 09:22
PROVIDERS: PCP Nurse Practitioner Family; Visit Provider Internal Medicine Adolescent Medicine
DX: Z79.01 Long term (current) use of anticoagulants (principal); Z95.2 Presence of prosthetic heart valve
CPT/HCPCS: 85610; 99211; G0463

== ENCOUNTER 2023-12-28 14:15 | Outpatient (POV) | payer OTHER, SELFPAY ==
[2023-12-28 14:39] VITALS: BP 137/89; PULSE 80; RESP 18; O2SAT 97; BMI 27.4
--- NOTE | 2023-12-28 14:46 | A.OFFVIS_ITS ---
[facility] Disclaimer: The information contained in this section may have been updated after the patient was seen, as this information can be updated by other users. Medical History (Updated 12/28/23 @ 14:48 by Gail Quintana APRN) Depression Anxiety Bicuspid cardiac valve Family History Other No significant family history Social History Smoking Status: Never smoker alcohol intake: never current occupational status: employed Travel in the last 8 weeks: None PM Subjective & Objective Subjective Subjective:: Patient is a pleasant 33-year-old male who presents today for follow-up. Today he rates his pain a 7 out of 10. Patient denies any new trauma or injury however he does state that he is experiencing more pain in his low back that does radiate down his entire left extremity. He does describe this as a aching sensation with tightness and strain that he feels a lot more under his left upper thigh. He does state that this is been going on for more than 3 months. Patient states he has not had any updated imaging for a few years. Patient is interested in what we can do to help with the pain. His Dar has been reviewed and is appropriate. Review of Systems: General: No recent weight changes, no fever, no sleep disturbances Respiratory: No cough, no shortness of air, no recurring pulmonary infections Cardiovascular/peripheral vascular: No chest pain, no palpitations, no edema, no shortness of breath Gastrointestinal: No new onset incontinence, normal bowel movements reported Genitourinary: No new onset incontinence Musculoskeletal: Low back pain, left leg pain Psychiatric: [Normal mood/affect] Neurological: [Denies weakness in extremities], [denies balance issues] Pain at rest (0-10 scale): 7 Objective Objective:: Physical Exam: General: Alert and oriented x3, no acute distress, pleasant and cooperative Lungs: Respirations even and unlabored, symmetrical chest expansion Eyes: PERRL Musculoskeletal: Flexion and extension of lumbar [spine] somewhat guarded secondary to pain, [antalgic gait noted] Neurological: Speech clear, no gross sensory deficit Has patient had previous pain injection?: No Conservative treatment options previously tried: Home exercise plan Length of treatment: Longer than 6 weeks Meds Home Medications and Allergies Home Medications Medication Instructions Recorded Confirmed Type warfarin 1 mg tablet 1 mg PO DAILY ARTIFICIAL VALVE 07/05/20 12/28/23 History warfarin 4 mg tablet 8 mg PO DAILY ARTIFICIAL VALVE 07/05/20 12/28/23 History sertraline 100 mg tablet 100 mg PO DAILY MOOD 06/17/23 12/28/23 History New Prescriptions to Start Prescriptions: Allergies Allergy/AdvReac Type Severity Reaction Status Date / Time No Known Allergies Allergy Verified 05/27/23 18:44 Assessment and Plan *Assessment and plan (1) Lumbar facet arthropathy: Status: Acute Category: Medical Code(s): M47.816 - Spondylosis without myelopathy or radiculopathy, lumbar region (2) Degenerative disc disease, lumbar: Status: Acute Category: Medical Code(s): M51.36 - Other intervertebral disc degeneration, lumbar region (3) Lumbar spondylosis: Status: Acute Category: Medical Code(s): M47.816 - Spondylosis without myelopathy or radiculopathy, lumbar region (4) Lumbar radiculopathy: Status: Acute Category: Medical Code(s): M54.16 - Radiculopathy, lumbar region Plan Will order updated x-ray and MRI without contrast of his lumbar spine. I have discussed with patient in future he may benefit from lumbar epidural steroid injections however we will follow-up with this after his imaging for reevaluation of symptoms and plan of care. Patient has been instructed to contact the clinic with any concerns before the next appointment. Dr. Baum has reviewed this note and agrees with this plan of care. This note was dictated using voice recognition software and make contain errors or omissions.
== END 2023-12-28 23:59 | disposition home or self-care (01) ==
LOC: SC.PAIN 14:15
PROVIDERS: PCP Nurse Practitioner Family; Visit Provider Nurse Practitioner Family
DX: M51.16 Intervertebral disc disorders with radiculopathy, lumbar region; Z95.2 Presence of prosthetic heart valve; Z79.01 Long term (current) use of anticoagulants; M47.26 Other spondylosis with radiculopathy, lumbar region
CPT/HCPCS: 99212; G0463

== ENCOUNTER 2023-12-28 14:57 | Outpatient (CLI) | payer OTHER, SELFPAY ==
--- NOTE | 2023-12-28 15:02 | XR_ITS ---
FINAL REPORT CLINICAL HISTORY: LOW BACK PAIN FINDINGS: AP, lateral, and oblique views of the lumbar spine were obtained. There is no acute fracture or acute malalignment. Vertebral body height is preserved. . No acute paraspinal abnormality is identified. IMPRESSION: No acute osseous abnormalities lumbar spine. Reviewed, Interpreted and Dictated by Tessy Castañeda MD Transcribed by Elena Krueger Authenticated and . [facility]
== END 2023-12-28 23:59 | disposition home or self-care (01) ==
LOC: RAD 14:59
PROVIDERS: PCP Nurse Practitioner Family; Visit Provider Nurse Practitioner Family
DX: M54.50 Low back pain, unspecified (principal)
CPT/HCPCS: 72110

== ENCOUNTER 2024-01-04 08:24 | Outpatient (CLI) | payer OTHER, SELFPAY ==
[2024-01-04 09:00] LABS: PHA INR Fingerstick 2.1 (0.9-1.1)
== END 2024-01-04 09:02 ==
LOC: ACC 08:25
PROVIDERS: PCP Internal Medicine Adolescent Medicine; Visit Provider Internal Medicine Adolescent Medicine
DX: Z95.2 Presence of prosthetic heart valve (principal); Z79.01 Long term (current) use of anticoagulants
CPT/HCPCS: 85610; 99211; G0463

== ENCOUNTER 2024-01-16 15:34 | Outpatient (CLI) | payer OTHER, SELFPAY ==
--- NOTE | 2024-01-16 | MR_ITS ---
FINAL REPORT CLINICAL HISTORY: LBP FINDINGS: Multiplanar MR imaging of the lumbar spine was performed without contrast. On the sagittal T2-weighted images, disc degeneration is seen at L5-S1. The vertebral alignment is normal. There is no evidence of fracture. The conus has an unremarkable appearance. L1-2: Unremarkable. L2-3: Unremarkable. L3-4: Unremarkable. L4-5: A small right foraminal disc protrusion is seen. There is mild right neural foraminal narrowing. L5-S1: A large left paracentral inferiorly extruded disc is present. There is left lateral recess stenosis and left S1 nerve root impingement. Mild right and severe left neural foraminal narrowing is seen. IMPRESSION: Large left paracentral L5-S1 inferiorly extruded disc with left S1 nerve root impingement. Small right foraminal L4-5 disc protrusion. Authenticated and ERN
== END 2024-01-16 23:59 | disposition home or self-care (01) ==
LOC: RAD 15:35
PROVIDERS: PCP Nurse Practitioner Family; Visit Provider Nurse Practitioner Family
DX: M54.59 Other low back pain (principal)
CPT/HCPCS: 72148

== ENCOUNTER 2024-01-26 15:21 | Outpatient (POV) | payer OTHER, SELFPAY ==
[2024-01-26 15:46] VITALS: BP 135/82; PULSE 68; RESP 16; O2SAT 97; BMI 27.7
--- NOTE | 2024-01-26 16:13 | EXP.PAIN.SOA ---
[facility] Disclaimer: The information contained in this section may have been updated after the patient was seen, as this information can be updated by other users. Medical History (Updated 01/26/24 @ 16:15 by Gail Quintana APRN) Depression Anxiety Bicuspid cardiac valve Family History Other No significant family history Social History Smoking Status: Never smoker alcohol intake: never current occupational status: employed Travel in the last 8 weeks: None PM Subjective & Objective Subjective Subjective:: Patient is a pleasant 33-year-old male who presents today for follow-up of lumbar MRI. Today he rates his pain a 8 out of 10 and denies any new trauma or injury. He does state that he continues to have worsening pain throughout his low back with radiating symptoms down his left leg. Patient describes it as an aching, throbbing sensation that is worse with increased activity or ambulation. He does state the pain interferes with his ability perform activities of daily living such as cooking and cleaning. Patient has tried and failed conservative therapy including continued at home stretching exercise for longer than 6 weeks. His Dar has been reviewed and is appropriate. Review of Systems: General: No recent weight changes, no fever, no sleep disturbances Respiratory: No cough, no shortness of air, no recurring pulmonary infections Cardiovascular/peripheral vascular: No chest pain, no palpitations, no edema, no shortness of breath Gastrointestinal: No new onset incontinence, normal bowel movements reported Genitourinary: No new onset incontinence Musculoskeletal: Low back pain, left leg pain Psychiatric: [Normal mood/affect] Neurological: [Denies weakness in extremities], [denies balance issues] Pain at rest (0-10 scale): 8 Objective Objective:: Physical Exam: General: Alert and oriented x3, no acute distress, pleasant and cooperative Lungs: Respirations even and unlabored, symmetrical chest expansion Eyes: PERRL Musculoskeletal: Flexion and extension of lumbar [spine] somewhat guarded secondary to pain, [antalgic gait noted] Neurological: Speech clear, no gross sensory deficit FINDINGS: Multiplanar MR imaging of the lumbar spine was performed without contrast. On the sagittal T2-weighted images, disc degeneration is seen at L5-S1. The vertebral alignment is normal. There is no evidence of fracture. The conus has an unremarkable appearance. L1-2: Unremarkable. L2-3: Unremarkable. L3-4: Unremarkable. L4-5: A small right foraminal disc protrusion is seen. There is mild right neural foraminal narrowing. L5-S1: A large left paracentral inferiorly extruded disc is present. There is left lateral recess stenosis and left S1 nerve root impingement. Mild right and severe left neural foraminal narrowing is seen. IMPRESSION: Large left paracentral L5-S1 inferiorly extruded disc with left S1 nerve root impingement. Small right foraminal L4-5 disc protrusion. Authenticated and ERN Has patient had previous pain injection?: No Conservative treatment options previously tried: Home exercise plan Length of treatment: Longer than 6 weeks Meds Home Medications and Allergies Home Medications ?Medication ?Instructions ?Recorded ?Confirmed ?Type warfarin 1 mg tablet 1 mg PO DAILY ARTIFICIAL VALVE 07/05/20 01/26/24 History warfarin 4 mg tablet 8 mg PO DAILY ARTIFICIAL VALVE 07/05/20 01/26/24 History sertraline 100 mg tablet 100 mg PO DAILY MOOD 06/17/23 01/26/24 History New Prescriptions to Start Prescriptions: Allergies Allergy/AdvReac Type Severity Reaction Status Date / Time No Known Allergies Allergy Verified 05/27/23 18:44 Assessment and Plan *Assessment and plan (1) Degenerative disc disease, lumbar: Status: Acute Category: Medical Code(s): M51.36 - Other intervertebral disc degeneration, lumbar region (2) Lumbar radiculopathy: Status: Acute Category: Medical Code(s): M54.16 - Radiculopathy, lumbar region (3) Lumbar nerve root impingement: Status: Acute Category: Medical Code(s): M54.16 - Radiculopathy, lumbar region Plan I did review over the patient's lumbar findings and did discuss with him that I do believe he would benefit from a lumbar epidural steroid injection of L5-S1 where he does have a nerve root impingement as well as severe left narrowing. Risk and benefits were discussed with the patient and he would like to proceed forward with this plan of care. Patient is on warfarin and will have to be bridged over with Lovenox prior to the epidural injection. Patient acknowledges understanding. Patient has tried and failed conservative therapy including continued at home stretching exercise for longer than 6 weeks. I did also discuss with the patient due to his large protruding disc that I would recommend referral to neurosurgery for surgical evaluation for possible discectomy. Patient is in agreement with this plan of care. We will send him for referral to Dr. Louise. Patient will be scheduled for an LESI L5-S1 under fluoroscopy. I will also order the patient a compounded cream. Patient has been instructed to contact the clinic with any concerns before the next appointment. Dr. Baum has reviewed this note and agrees with this plan of care. This note was dictated using voice recognition software and make contain errors or omissions. All injections are used with Lidocaine or Bupivacaine and Depo Medrol.
== END 2024-01-26 23:59 | disposition home or self-care (01) ==
LOC: SC.PAIN 15:21
PROVIDERS: PCP Nurse Practitioner Family; Visit Provider Nurse Practitioner Family
DX: M51.16 Intervertebral disc disorders with radiculopathy, lumbar region (principal); Z95.2 Presence of prosthetic heart valve; Z79.01 Long term (current) use of anticoagulants; Z73.89 Other problems related to life management difficulty
CPT/HCPCS: 99212; G0463

== ENCOUNTER 2024-02-07 10:30 | Day surgery (SDC) | payer OTHER, SELFPAY ==
[2024-02-07 11:09] VITALS: BP 131/90; PULSE 71; RESP 16; O2SAT 98; BMI 27.7
[2024-02-07 11:09] LABS: INR 1.19 (0.9-1.1); Prothrombin Time 13.1 seconds (10.1-12.5)
--- NOTE | 2024-02-07 11:10 | PC.NURSE ---
jane mancia notified of pt PT/INR results-states okay for pt to have injection. updated pt.
--- NOTE | 2024-02-07 11:32 | EXP.PAIN.PRO ---
Procedure Date: 02/07/24 Time: 11:20 Anesthesiologist:: Fermin Mantilla CRNA Complications:: None Pre-procedure Diagnosis:: Degenerative disc lumbar spine multilevels. Lumbar radiculopathy. Lumbar disc bulge L4-5, L5-S1. Post-procedure Diagnosis:: Same. Indications for Procedure:: Patient is a very pleasant 33-year-old male who comes our clinic today for lumbar epidural steroid injection at the L5-S1 level. Patient describes low back pain as well as bilateral hip and leg radicular symptoms at times. He rates his pain 6/10. Patient's INR was 1.1 today. 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 Procedure Details:: Procedure: Lumbar epidural steroid injection under fluoroscopy Informed consent was obtained and the risks and benefits of the procedure were explained to the patient. The patient was taken to the procedure room and noninvasive monitors placed, including noninvasive blood pressure cuff and pulse oximeter. The back was viewed using C-arm Fluoroscopy and prepped using Chloraprep as a cleansing solution and the L5-S1 interspace was palpated. Skin and subcutaneous tissues were anesthetized using lidocaine 1.5% and a 25-gauge needle. After this, an 18-gauge Touhy epidural needle was placed into the L5-S1 interspace and advanced using fluoroscopic guidance and loss of resistance to air until the epidural space was encountered. After confirmation of needle placement in the epidural space, with dye, a solution containing normal saline, 3 mL and Depo-Medrol 80 mg were incrementally injected into the lumbar epidural space. The patient tolerated the procedure well with no complications. The patient was observed in the Pain Clinic and then discharged home neurologically intact. Plan and Disposition:: Patient was discharged without incident.
[2024-02-07 11:34] VITALS: BP 154/90; PULSE 60; RESP 16; O2SAT 98
--- NOTE | 2024-02-07 11:36 | PC.NURSE ---
pt education to follow chart given prior to injection to restart blood thinners
[2024-02-07] MEDS: methylPREDNISolone ACETATE 80MG/ML VIAL 80 MG (11:44)
[2024-02-07 11:45] VITALS: BP 132/94; PULSE 58; RESP 18; O2SAT 99
[2024-02-07 11:48] VITALS: BP 132/94; PULSE 58; RESP 18; O2SAT 99
== END 2024-02-07 11:34 | disposition home or self-care (01) ==
PROVIDERS: Physician Assistant Surgical; PCP Nurse Practitioner Family; Visit Provider Nurse Anesthetist, Certified Registered
DX: M51.16 Intervertebral disc disorders with radiculopathy, lumbar region (principal); Z79.01 Long term (current) use of anticoagulants; Z95.2 Presence of prosthetic heart valve
CPT/HCPCS: 36415; 62323; 85610; J1010

== ENCOUNTER 2024-02-10 11:28 | Outpatient (CLI) | payer OTHER, SELFPAY ==
[2024-02-10 13:28] LABS: PHA INR Fingerstick 1.8 (0.9-1.1)
== END 2024-02-10 13:32 ==
LOC: ACC 11:28
PROVIDERS: PCP Nurse Practitioner Family; Visit Provider Internal Medicine Adolescent Medicine
DX: Z79.01 Long term (current) use of anticoagulants (principal); I48.91 Unspecified atrial fibrillation
CPT/HCPCS: 85610; 99211; G0463

== ENCOUNTER 2024-04-03 10:57 | Outpatient (CLI) | payer OTHER, SELFPAY ==
[2024-04-03 13:33] LABS: PHA INR Fingerstick 1.8 (0.9-1.1)
== END 2024-04-03 13:53 ==
LOC: ACC 10:58
PROVIDERS: PCP Nurse Practitioner Family; Visit Provider Internal Medicine Adolescent Medicine
DX: Z79.01 Long term (current) use of anticoagulants (principal); Z95.2 Presence of prosthetic heart valve
CPT/HCPCS: 85610; 99211; G0463

== ENCOUNTER 2024-04-23 11:39 | Outpatient (CLI) | payer OTHER, SELFPAY | END 2024-04-23 14:20 | LOC: ACC 11:40 | PROVIDERS: PCP Nurse Practitioner Family; Visit Provider Nurse Practitioner Family | DX: Z79.01 Long term (current) use of anticoagulants (principal); Z95.2 Presence of prosthetic heart valve | CPT/HCPCS: 85610; 99211; G0463 ==

== ENCOUNTER 2024-06-21 08:13 | Outpatient (CLI) | payer OTHER, SELFPAY | END 2024-06-21 12:10 | LOC: ACC 08:14 | PROVIDERS: PCP Nurse Practitioner Family; Visit Provider Internal Medicine Adolescent Medicine | DX: Z79.01 Long term (current) use of anticoagulants (principal); Z95.2 Presence of prosthetic heart valve | CPT/HCPCS: 85610; 99211; G0463 ==

== ENCOUNTER 2024-08-02 09:08 | Outpatient (CLI) | payer OTHER, SELFPAY ==
[2024-08-02 09:28] LABS: PHA INR Fingerstick 1.8 (0.9-1.1)
== END 2024-08-02 09:29 ==
LOC: ACC 09:08
PROVIDERS: PCP Nurse Practitioner Family; Visit Provider Internal Medicine Adolescent Medicine
DX: Z79.01 Long term (current) use of anticoagulants (principal); Z95.2 Presence of prosthetic heart valve
CPT/HCPCS: 85610; 99211; G0463

== ENCOUNTER 2024-11-19 12:32 | Outpatient (CLI) | payer OTHER, SELFPAY ==
--- OUTSIDE RECORDS SUMMARY | 2024-11-19 12:35 | XMS_ITS | Data Portability ---
Author Organization [facility] Address [address] [place] [address] Care Team Providers Care Design Project Manager Name Role Phone LIZ, BARRY Primary Care Provider Assessment Encounter Date Assessment Date Assessment LastModified by Organization Details LastModified Time 05/28/2024 05/28/2024 Mr. Cheung is status post open left L5-S1 hemilaminectomy and discectomy on 04/13/[address] You. He has had good improvement. We discussed gradually increasing his activity. He understands to use good body mechanics when he lifts so reduce his risk of a reherniation. He ask about seeing a chiropractor. I recommended he wait until 3 months after his discectomy. He understands if he has any worsening symptoms in the future to give our office a call. He will follow-up as needed. [email or web address] Not available 05/28/2024 15:34:11 Plan of Treatment Reminders Order Date Submit Date Provider Last Modified By Organization Details Last Modified Time Details Appointments None recorded. Lab None recorded. Referral None recorded. Procedures None recorded. Surgeries None recorded. Imaging None recorded. Medication Orders tramadol 50 mg tablet 2023 024 [facility], [address] [place] [address] [address] [place], [id number], 17:58:46 cyclobenzap rine 10 mg tablet 2023 024 [facility], [address] [place] [address] [address] [place], [id number], 15:41:36 Patient TargetsNo targets recorded. Patient InstructionsNo instructions recorded. Reason for Referral None Reported. Results Created Date Observation Date Name Description Value Unit Range Abnormal Flag Note LastModifiedBy Organization Detail LastModifiedTime 04/07/2004/07/2024 hector fragoso am inter preta tion* No observ ation record ed. [email or web address] [facility] [address], [place], [address], 04/10/2024 14:34:18 Result Notes None recorded. Medical Equipment None Reported. Allergies No known drug allergies Medications Name Sig Start Date Stop Date Status Note LastModified by Organization Details LastModified Time cyclobenzapr ine 10 mg tablet TAKE ONE TABLET BY MOUTH THREE TIMES DAILY MAY CAUSE DROWSINESS active Not Available Not Available N ot Available gabapentin 400 mg capsule active Not Available Not Available Not Available sertraline 100 mg tablet TAKE ONE TABLET BY MOUTH EVERY DAY active Not Available Not Available No t Available tramadol 50 mg tablet TAKE ONE TABLET BY MOUTH EVERY 6 HOURS active Not Available Not Available No t Available warfarin 4 mg tablet TAKE TWO TABLETS BY MOUTH EVERY DAY OR DIRECTED active Not Available Not Available No t Available oxycodone-ac etaminophen 5 mg-325 mg tablet TAKE ONE TABLET BY MOUTH EVERY 6 HOURS MAY CAUSE DROWSINESS active Not Available Not Available N ot Available amoxicillin 875 mg tablet TAKE 1 TABLET BY MOUTH EVERY 12 HOURS active Not Available Not Available No t Available benzonatate 100 mg capsule TAKE 1 CAPSULE BY MOUTH THREE TIMES DAILY NEEDED FOR COUGH active Not Available Not Available No t Available docusate sodium 100 mg capsule TAKE ONE CAPSULE BY MOUTH EVERY DAY active Not Available Not Available No t Available warfarin 1 mg tablet TAKE 1 TO 2 TABLET(S) BY MOUTH EVERY DAY OR DIRECTED active Not Available Not Available No t Available methylpredni solone 4 mg tablets in a dose pack TAKE ACCORDING TO PACKAGE INSTRUCTION S --TAKE WITH FOOD-- -- FINISH ALL MEDICINE -- active Not Available Not Available Not Available cefdinir 300 mg capsule TAKE 1 CAPSULE BY MOUTH EVERY 12 HOURS FOR 10 DAYS active Not Available Not Available Not Available enoxaparin 100 mg/mL subcutaneous syringe inject 95mg subcutaneou sly every 12 hours FOR 12 DAYS DIRECTED active Not Available Not Available Not Available Vitals None Recorded Social History None recorded. Functional Status None recorded. Mental Status None recorded. Family History Relationship Description Onset Age of this Age Resolved Age Notes LastModified by Organization Details LastModified Time Father No current problems or disability [email or web address] Not available 1 13:53:09 Mother No current problems or disability [email or web address] Not available 1 13:53:09 Medical History No medical history recorded. Past Encounters Encounter ID Performer Location Encounter Start Date Encounter Closed Date Diagnosis/Indication Diagnosis SNOMED-CT Code Diagnosis ICD10 Code Diagnosis Note [id number] HAY YOU MD [facility] [address] [place] [address] 03/26/2024 13:10:04 03/27/2024 16:30:31 Lumbar radiculopathy [id number] M54.16 I discussed his radiograph ic findings with him. He has a large left L5-S1 disc herniation compressin g the S1 nerve root. He is exhausted all conservati ve measures. I am recommendi ng surgery. I have outlined a left L5-S1 hemilamine ctomy with microdisce ctomy. He is voices understand ing is elected to proceed. He is on warfarin for mechanical heart valve and they we will use a Lovenox bridge which they are very well accustomed to doing. I will also give him a low-dose pain medication and a muscle relaxer to see if this helps him sleep. We will get him scheduled and see him back on the day of surgery. Have answered all his questions. He is happy with the management plan. [id number] HAY YOU MD SURGERY SCHEDULE [address] [place] [address] 04/20/2024 09:35:48 04/25/2024 13:20:21 [id number] KHLOE GUTIERREZ PA-C [facility] [address] [place] [address] 05/28/2024 15:20:32 05/30/2024 12:42:09 Postoperative care [id number] Z48.89 Health Concerns Section Related Observation LastModified by Organization Detai ls LastModified Time None Recorded Concern Status LastModified by Organization Details LastModified Time None Recorded Advance Directives Directive None Recorded Payers Insurance Date Sequence Insurance Name Policy Number Policy Pond Covered Member ID Pond Member ID Guarantor Name 03/26/2024 1 [employer]IV[employer]-Flor Rouse (O) HIXKY Alfredo Payne Waits [id number] Alfredo Payne Waits 05/25/2024 1 [employer] (O) [id number] Alfredo Payne Waits [id number] Alfredo Payne Waits Notes Date Note Type Note Provider Name and Address Organization Details Recorded Time 03/26/2024 text/html Patient is a magen y pleasant 33-year-old gentleman here today in neurosurgical consultation for low back and left lower extremity pain. 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 He states the pain began acutely and traveled down his left lower extremity. It travel down the back of his leg to his foot. He has done physical therapy while at home and is quite active at his job as well. He does do stretching. He was referred to pain management and has received 2 epidural injections with no benefit. He states sitting makes the pain worse. He can no longer sleep secondary to the pain. His is at his appointment today and corroborates his story. 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 He feels quite restricted as to what he can do both at work and while at home. He has been having people help him at work as he has not been able to do his normal tasks. He is ready to pursue surgical options. Imaging: I personally reviewed his lumbar MRI which demonstrates a large disc herniation at L5-S1 compressing the traversing S1 nerve root HAY YOU MD [address] [place] [address], [phone], [facility] 03/26/2024 15:33:15 05/28/2024 text/html Mr. Cheung is st atus post an open left L5-S1 hemilaminectomy and discectomy on 04/13/2024. He reports good improvement in his left radicular leg pain since surgery. 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 He gets an occasional funny feeling in the left leg, but reports that his symptoms are significantly improved. KHLOE GUTIERREZ PA-C [address], [place], [address], [facility] 05/28/2024 15:35:03
--- OUTSIDE RECORDS SUMMARY | 2024-11-19 12:35 | XMS_ITS | Referral Summary ---
Author Organization [facility] In iatives Address [address] [place] [address] Care Team Providers Care Home Care Giver Name Role Phone Candy Carlos APRN Unavailable [phone] Ana Paula Daphnie ATIYA Primary Care Provider [phone] Allergies No known active allergies Medications loratadine (CLARITIN) 10 mg tablet Take 1 tablet (10 mg total) by mouth daily. Active fluticasone propionate (FLONASE) 50 mcg/actuation nasal spray 1 spray by Nasal route daily. Active multivitamin per tablet Take 1 tablet by mouth daily. Active sertraline (ZOLOFT) 100 MG tablet Take 1 tablet (100 mg total) by mouth daily. Active warfarin sodium (WARFARIN ORAL) Take by mouth 9 mg daily . Active Active Problems Problem Noted Date Diagnosed Date Heart murmur 01/10/2023 Social History Tobacco Use Types Packs/Day Years Used Date Smoking Tobacco: Never Smokeless Tobacco: Current Tobacco Cessation:Ready to Q uit: Not Asked; Counseling Given: Not Answered Comments:Nicotine pouches daily Alcohol Use Standard Drinks/Week Comments Yes 0 (1 standard drink = 0.6 oz pur e alcohol) socially Interpersonal Safety Answer Date Record ed Family or friends hurt you Not on file 07/01 Family or friends insult you Not on file Family or friends threaten you Not on file 0 07/01/2023 Family or friends scream or curse at you Not on file 07/01/2023 Housing Stability Answer Date Recorded Living situation today Not on file Living situation problems Not on file 2023 Family and Community Support Answer Jayy e Recorded Help with Day to Day Activities Not on file 07/01/2023 Feeling Lonely or Isolated Not on file 07/01 Educational Attainment Answer Date Cody rded Speak language other than Bulgarian at home Not on file 07/01/2023 Want help with school or training Not on file 07/01/2023 Depression Answer Date Recorded PHQ-2 Risk Not on file 07/01/2023 Disabilities Answer Date Recorded Difficulty concentrating Not on file 024 Difficulty doing errands alone Not on file 0 07/01/2023 Substance Use Answer Date Recorded Used prescription meds for non-medical reasons N ot on file 07/01/2023 Used illegal drugs past 12 months Not on file 07/01/2023 Sex and Gender Information Value Date Recorded Sex Assigned at Not on file Legal Sex Male 4:24 PM CDT Gender Identity Not on file Sexual Orientation Not on file Last Filed Vital Signs Vital Sign Reading Time Taken Comments Blood Pressure 148/77 07/14/2023 10:42 AM EST Pulse 58 07/14/2023 10:42 AM EST Temperature - - Respiratory Rate 18 07/14/2023 10:42 AM EST Oxygen Saturation 98% 07/14/2023 10:42 AM EST Room Air Inhaled Oxygen Concentration - - Weight 90.3 kg (199 lb) 01/10/2023 10:28 AM EDT Height 185.4 cm (6' 1 ) 01/10/2023 10:28 AM EDT Body Mass Index 26.25 01/10/2023 10:28 AM EDT Plan of Treatment Not on file Insurance Jose Carlos SAGE NANO ABRAMS [id number] UMR Care Teams Home Care Giver Relationship Specialty Start Date End Date Ana PaulaSammieah, WIRE BENDER [address] [place] [address] PCP - General Nurse Practitioner 01/10/23 Candy Carlos, WIRE BENDER [address] [facility] [address] [place] [address] Cardiology 12/13/22
--- OUTSIDE RECORDS SUMMARY | 2024-11-19 12:35 | XMS_ITS | Clinical Summary ---
Author Organization [facility] Address [address] [facility] [address] [place] [address] Phone Care Team Providers Care Proofreader Name Role Phone H, Nazanin Unavailable Unavailable Conditions or Problems Problem Name Problem Code Onset Date Status Entry Date Provider Comment Standard Description Annotate Aortic regurgitation 12514146 (SNOMED CT) 10/03 Active 10/03 Kelley Addison Aortic valve regurgitation Other specified complication of cardiac prosthetic devices, implants and grafts, subsequent encounter(s) T82.897D (ICD-10-CM) 10/03 Active 10/03 Kelley Addison Other specified complication of cardiac prosthetic devices, implants and grafts, subsequent encounter Presence of prosthetic heart valve Z95.2 (ICD-10-CM) 10/03 Active 10/03 Kelley Addison Presence of prosthetic heart valve History of PNA (recurrent) 078732197 (SNOMED CT) 10/03 Active 10/03 Kelley Addison History of recurrent pneumonia Medications Medication Instructions Start Date Stop Date Generic Name [facility] Provider MULTIVITAMIN ADULTS TABS by mouth daily 0 MULTIPLE VITAMINS-MINERA LS [id number] Terrence K FLONASE 50 MCG/ACT NASAL SUSPENSION daily 0 FLUTICASONE PROPIONATE [id number] Terrence K ASPIRIN 81 MG ORAL TABLET by mouth daily 0 ASPIRIN [id number] Terrence K Medications Administered No information available. Allergies, Adverse Reactions, Alerts No information available. Results Date Name Value Unit Range Flag Description Office Visit: Room 2 HFU SMOK STATUS Never smoker Toba senior staff accountant smoking status ORALTOBACUSE Current Tobacco smoking status MEDS REVIEW Done Documenta tion of current medications (procedure) Plan of Care No information available. Procedures No information available. Vital Signs Date Name Value Unit Description BMI (Body Mass Index) 24.27 kg/m2 Bod y Mass Index (Ratio) Body Temperature 98.4 [degF] temperat ure E&M BP Diastolic 26 mm[Hg] blood pressu re, diastolic BP Systolic 118 mm[Hg] blood pressur e, systolic Heart Rate 64 /min pulse rate Height 73 [in_us] height E&M Respiratory Rate 14 /min respirat ory rate E&M Weight Measured 184 [lb_av] weight E& M Weight Measured 184 [lb_av] weight E& M Immunizations No information available. Advance Directives Directive Description Start Date NO ADVANCED DIRECTIVES
--- OUTSIDE RECORDS SUMMARY | 2024-11-19 12:35 | XMS_ITS | Clinical Summary ---
Author Organization [facility] In iatives Address [address] [place] [address] Care Team Providers Care Dipper And Drier Name Role Phone Candy Carlos APRN Unavailable [phone] Ana PaulaDaphnie ATIYA Primary Care Provider [phone] Allergies No known active allergies Medications loratadine [...] Noted Date Diagnosed Date Heart murmur 01/10/2023 Family History Medical History Relation Name Comments Hyperlipidemia Father Hypertension Father Relation Name Status Comments Father Social History Tobacco Use Types Packs/Day Years [...] Date Cody rded Speak language other than East Timorese at home Not on file 07/01/2023 Want [...] 01/10/2023 10:28 AM EDT Plan of Treatment Health Maintenance Due Date Last Done Comments Depression Screening (12+) 2001 HIV Screening 2004 Hepatitis C Screening 09/30/2007 Tobacco Cessation Counseling and Screening (12+) 01/11/2024 01/10/2023 COVID-19 VACCINE ( - 2023-2 5 season) 2024 Lipid Panel 2024 DTAP/TDAP/TD VACCINES (2 - T d or Tdap) 12/10/2024 12/10/2014 Influenza Vaccine (Season Ended) 2025 Pneumococcal Vaccine: 0-49 Years Aged Out No longer eligible based on patient's age to complete this [place] [id number] UMR Care Teams Dipper And Drier Relationship Specialty Start Date End Date Daphnie Goss, SPECIAL WARFARE COMBATANT CREWMAN [address] [facility] [address] [place] [address] PCP - General Nurse Practitioner 01/10/23 Candy Carlos, SPECIAL WARFARE COMBATANT CREWMAN [address] [facility] [address] [place] [address] Cardiology 12/13/22
--- OUTSIDE RECORDS SUMMARY | 2024-11-19 12:35 | XMS_ITS | Clinical Summary ---
Author Organization Healthcare Address [address] [place] [address] Care Team Providers Care Agricultural Equipment Operator Name Role Phone Unavailable Primary Care Provider Unavailabl e Family History Medical History Relation Name Comments Hypertension Father Conversions - Other Maternal Grandmother borderline diabetes mellitus Hypertension Maternal Grandmother Relation Name Status Comments Father Maternal Grandmother Social History Tobacco Use Types Packs/Day Years Used Date Smoking Tobacco: Every Day Sex and Gender Information Value Date Recorded Sex Assigned at Not on file Legal Sex Male 7:26 PM EDT Gender Identity Not on file Sexual Orientation Not on file Last Filed Vital Signs Vital Sign Reading Time Taken Comments Blood Pressure - - Pulse - - Temperature - - Respiratory Rate - - Oxygen Saturation - - Inhaled Oxygen Concentration - - Weight 81.1 kg (178 lb 12.7 oz) 04/09/2015 9:45 AM EDT Height 185.4 cm (6' 1 ) 04/09/2015 9:45 AM EDT Body Mass Index 23.59 04/09/2015 9:45 AM EDT Plan of Treatment Not on file
[2024-11-19 14:04] LABS: PHA INR Fingerstick 1.6 (0.9-1.1)
== END 2024-11-19 14:22 ==
LOC: ACC 12:33
PROVIDERS: PCP Internal Medicine Adolescent Medicine; Visit Provider Internal Medicine Adolescent Medicine
DX: Z95.2 Presence of prosthetic heart valve (principal)
CPT/HCPCS: 85610; 99211; G0463

== ENCOUNTER 2024-12-04 08:08 | Outpatient (CLI) | payer OTHER, SELFPAY ==
--- OUTSIDE RECORDS SUMMARY | 2024-12-04 08:10 | XMS_ITS | Clinical Summary ---
Author Organization Healthcare Address [address] [place] [address] Care Team Providers Care Ramp Service Man Name Role Phone Unavailable Primary Care Provider [...]
--- OUTSIDE RECORDS SUMMARY | 2024-12-04 08:10 | XMS_ITS | Referral Summary ---
Author Organization [facility] In iatives Address [address] [place] [address] Care Team Providers Care Job Setter Honing Name Role Phone Candy Carlos APRN Unavailable [phone] Ana Paula Daphnie ATIYA Primary Care Provider [phone] Allergies No known active allergies Medications loratadine [...] Date Cody rded Speak language other than South Korean at home Not on file 07/01/2023 Want [...] file Insurance Jose Carlos SAGE NANO ABRAMS [id number] UMR Care Teams Job Setter Honing Relationship Specialty Start Date End Date Ana PaulaSammieah, MILLING MACHINE OPERATOR GEAR [address] [place] [address] PCP - General Nurse Practitioner 01/10/23 Candy Carlos, MILLING MACHINE OPERATOR GEAR [address] [facility] [address] [place] [address] Cardiology 12/13/22
--- OUTSIDE RECORDS SUMMARY | 2024-12-04 08:10 | XMS_ITS | Data Portability ---
Author Organization [facility] Address [address] [facility] [address] [place] [address] Care Team Providers Care Bird Keeper Name Role Phone BARRY HILL Primary Care Provider Assessment Encounter Date Assessment [...] Medication Orders tramadol 50 mg tablet 2023 [employer], [address] [place] [address] [address] [place], [id number], 17:58:46 cyclobenzap rine 10 mg tablet 2023 [employer] [facility], [address] [place] [address] [address] [place], [place], [id number], 15:41:36 Patient TargetsNo targets recorded. Patient InstructionsNo instructions recorded. Reason for Referral None Reported. Results Created Date Observation Date Name Description Value Unit Range Abnormal Flag Note LastModifiedBy Organization Detail LastModifiedTime 04/07/2004/07/2024 hector fragoso am inter preta tion* No observ ation record ed. [email or web address] [facility] [address] [facility], [place], [address], 04/10/2024 14:34:18 Result Notes None recorded. Medical [...] SNOMED-CT Code Diagnosis ICD10 Code Diagnosis Note [id number] HAY YOU MD [facility] [address] [place] [address] 03/26/2024 13:10:04 03/27/2024 16:30:31 Lumbar radiculopathy [id number] M54.16 I discussed his radiograph ic findings [...] He is happy with the management plan. [id number] HAY YOU MD SURGERY SCHEDULE [address] [place] [address] 04/20/2024 09:35:48 04/25/2024 13:20:21 [id number] KHLOE GUTIERREZ PA-C [facility] [address] [place] [address] 05/28/2024 15:20:32 05/30/2024 12:42:09 Postoperative care [id number] Z48.89 Health Concerns Section Related Observation LastModified by Organization Detai ls LastModified Time None Recorded Concern Status LastModified by Organization Details LastModified Time None Recorded Advance Directives Directive None Recorded Payers Insurance Date Sequence Insurance Name Policy Number Policy Pond Covered Member ID Pond Member ID Guarantor Name 03/26/2024 1 CLIVESOSHER Rouse (HMO) HIXKY Alfredo Payne Waits [id number] Alfredo Payne Waits 05/25/2024 1 UMR (O) [id number] Alfredo Payne Waits [id number] Alfredo Payne Waits Notes Date Note Type [...] 3-week-old baby as he is unable to brass pickler or bend over. He feels quite restricted [...] traversing S1 nerve root HAY YOU MD [facility] [place], [address], [facility] 03/26/2024 15:33:15 05/28/2024 text/html Mr. Cheung is [...] are significantly improved. KHLOE GUTIERREZ PA-C [address] [place], [address], [facility] 05/28/2024 15:35:03
--- OUTSIDE RECORDS SUMMARY | 2024-12-04 08:11 | XMS_ITS | Clinical Summary ---
Author Organization [facility] Address [address] [place] [address] Care Team Providers Care Ems Instructor Name Role Phone Candy Carlos APRN Unavailable [phone] Ana PaulaDaphnie ATIYA Primary Care Provider [phone] Allergies No known active allergies Medications loratadine [...] Date Cody rded Speak language other than [place] Citizen at home Not on file 07/01/2023 Want [...] complete [place] [id number] UMR Care Teams Ems Instructor Relationship Specialty Start Date End Date Daphnie Goss, WAITER/WAITRESS FIRST CLASS [address] [facility] [address] [place] [address] PCP - General Nurse Practitioner 01/10/23 Candy Carlos, WAITER/WAITRESS FIRST CLASS [address] [facility] [address] [place] [address] Cardiology 12/13/22
--- OUTSIDE RECORDS SUMMARY | 2024-12-04 08:11 | XMS_ITS | Clinical Summary ---
Author Organization [facility] Address [address] [facility] [address] [place] [address] Phone Care Team Providers Care Import/Export Freight Forwarder Name Role Phone H, Nazanin Unavailable Unavailable Conditions or Problems Problem Name Problem Code Onset Date Status Entry Date Provider Comment Standard Description Annotate Aortic regurgitation 63092354 (SNOMED CT) 10/03 Active 10/03 Kelley Addison Aortic valve regurgitation Other specified complication of cardiac prosthetic devices, implants and grafts, subsequent encounter(s) T82.897D (ICD-10-CM) 10/03 Active 10/03 Kelley Addison Other specified complication of cardiac prosthetic devices, implants and grafts, subsequent encounter Presence of prosthetic heart valve Z95.2 (ICD-10-CM) 10/03 Active 10/03 Kelley Addison Presence of prosthetic heart valve History of PNA (recurrent) 762130751 (SNOMED CT) 10/03 Active 10/03 Kelley Addison History of recurrent pneumonia Medications Medication Instructions Start Date Stop Date Generic Name [facility] Provider MULTIVITAMIN ADULTS TABS by mouth daily 0 MULTIPLE VITAMINS-MINERA LS [id number] Terrence K FLONASE 50 MCG/ACT NASAL SUSPENSION daily 0 FLUTICASONE PROPIONATE 45798718244 Terrence K ASPIRIN 81 MG ORAL TABLET by mouth daily 0 ASPIRIN 93763391468 Terrence K Medications Administered No information available. Allergies, Adverse Reactions, Alerts No information available. Results Date Name Value Unit Range Flag Description Office Visit: Room 2 HFU SMOK STATUS Never smoker Toba billing and accounting staff assistant smoking status ORALTOBACUSE Current Tobacco smoking status [...]
[2024-12-04 09:21] LABS: PHA INR Fingerstick 3.2 (0.9-1.1)
== END 2024-12-04 09:23 ==
LOC: ACC 08:08
PROVIDERS: PCP Nurse Practitioner Family; Visit Provider Internal Medicine Adolescent Medicine
DX: Z95.2 Presence of prosthetic heart valve (principal)
CPT/HCPCS: 85610; 99211; G0463

== ENCOUNTER 2024-12-25 10:18 | Outpatient (CLI) | payer OTHER, SELFPAY ==
--- OUTSIDE RECORDS SUMMARY | 2024-12-25 10:41 | XMS_ITS | Clinical Summary ---
Author Organization [facility] Address [address] [facility] [address] [place] [address] Phone Care Team Providers Care Pressure Washer Name Role Phone H, Nazanin Unavailable Unavailable Conditions or Problems Problem Name Problem Code Onset Date Status Entry Date Provider Comment Standard Description Annotate Aortic regurgitation 06620627 (SNOMED CT) 10/03 Active 10/03 Kelley Addison Aortic valve regurgitation Other specified complication of cardiac prosthetic devices, implants and grafts, subsequent encounter(s) T82.897D (ICD-10-CM) 10/03 Active 10/03 Kelley Addison Other specified complication of cardiac prosthetic devices, implants and grafts, subsequent encounter Presence of prosthetic heart valve Z95.2 (ICD-10-CM) 10/03 Active 10/03 Kelley Addison Presence of prosthetic heart valve History of PNA (recurrent) 019416203 (SNOMED CT) 10/03 Active 10/03 Kelley Addison History of recurrent pneumonia Medications Medication Instructions Start Date Stop Date Generic Name [facility] Provider MULTIVITAMIN ADULTS TABS by mouth daily 0 MULTIPLE VITAMINS-MINERA LS [id number] Terrence K FLONASE 50 MCG/ACT NASAL SUSPENSION daily 0 FLUTICASONE PROPIONATE 21234495663 Terrence K ASPIRIN 81 MG ORAL TABLET by mouth daily 0 ASPIRIN 75972478641 Terrence K Medications Administered No information available. Allergies, Adverse Reactions, Alerts No information available. Results Date Name Value Unit Range Flag Description Office Visit: Room 2 HFU SMOK STATUS Never smoker Toba real estate accountant smoking status ORALTOBACUSE Current Tobacco smoking [...]
--- OUTSIDE RECORDS SUMMARY | 2024-12-25 10:42 | XMS_ITS | Referral Summary ---
Author Organization [facility] ([place], [place], [place], [place]) Address [address] [place] [address] Care Team Providers Care Assembler Golf Wood Head Name Role Phone Candy Carlos ATIYA Unavailable [phone] Daphnie Goss APRN Primary Care Provider [phone] Allergies No known active allergies Medications loratadine [...] = 0.6 oz pur e alcohol) socially Family and Community Support Answer Jayy e Recorded Help with Day to Day Activities Not on file 07/01/2023 Feeling Lonely or Isolated Not on file 07/01 Educational Attainment Answer Date Cody rded Speak language other than North Korean at home Not on file 07/01/2023 Want help with school or training Not on file 07/01/2023 Substance Use Answer Date Recorded Used [...] Plan of Treatment Not on file Insurance UMR Care Teams Assembler Golf Wood Head Relationship Specialty Start Date End Date Daphnie Goss, PICK PULLING MACHINE OPERATOR [address] [place] [address] PCP - General Nurse Practitioner 01/10/23 Candy Carlos, PICK PULLING MACHINE OPERATOR [address] [facility] [address] [place] [address] [facility] 12/13/22
--- OUTSIDE RECORDS SUMMARY | 2024-12-25 10:42 | XMS_ITS | Clinical Summary ---
Author Organization Healthcare Address [address] [place] [address] Care Team Providers Care Hydroelectric Production Manager Name Role Phone Unavailable Primary Care Provider [...]
--- OUTSIDE RECORDS SUMMARY | 2024-12-25 10:42 | XMS_ITS | Data Portability ---
Author Organization [facility] Address [address] [facility] [address] [place] [address] Care Team Providers Care Client Services Specialist Name Role Phone BARRY HILL Primary Care Provider [phone] Assessment Encounter Date Assessment Date Assessment LastModified [...] Medication Orders tramadol 50 mg tablet 2023 [employer], [address] [place] [address] [address] [place], [place], [id number], 17:58:46 cyclobenzap rine 10 mg tablet 2023 [employer] [facility], [address] [place] [address] [address] [place], [place], [id number], 15:41:36 Patient TargetsNo targets recorded. Patient InstructionsNo instructions recorded. Reason for Referral None Reported. Results Created Date Observation Date Name Description Value Unit Range Abnormal Flag Note LastModifiedBy Organization Detail LastModifiedTime 04/07/2004/07/2024 hector fragoso am inter preta tion* No observ ation record ed. [email or web address] [facility] [address] [facility], [place], [address], 04/10/2024 14:34:18 Result Notes None recorded. Medical [...] SNOMED-CT Code Diagnosis ICD10 Code Diagnosis Note [id number] HAY YOU MD [facility] [address] [place] [address] 03/26/2024 13:10:04 03/27/2024 16:30:31 Lumbar radiculopathy [id number] M54.16 I discussed his radiograph ic findings [...] He is happy with the management plan. [id number] HAY YOU MD SURGERY SCHEDULE [address] [place] [address] 04/20/2024 09:35:48 04/25/2024 13:20:21 [id number] KHLOE GUTIERREZ PA-C [facility] [address] [place] [address] 05/28/2024 15:20:32 05/30/2024 12:42:09 Postoperative care [id number] Z48.89 Health Concerns Section Related Observation LastModified by Organization Detai ls LastModified Time None Recorded Concern Status LastModified by Organization Details LastModified Time None Recorded Advance Directives Directive None Recorded Payers Insurance Date Sequence Insurance Name Policy Number Policy Pond Covered Member ID Pond Member ID Guarantor Name 03/26/2024 1 CLIVESOSHER Rouse (HMO) HIXKY Alfredo Payne Waits [id number] Alfredo Payne Waits 05/25/2024 1 UMR (O) [id number] Alfredo Payne Waits [id number] Alfredo Payne Waits Notes Date Note Type [...] 3-week-old baby as he is unable to belt picker or bend over. He feels quite restricted [...] traversing S1 nerve root HAY YOU MD [facility] [place], [address], [facility] 03/26/2024 15:33:15 05/28/2024 text/html Mr. [...] are significantly improved. KHLOE GUTIERREZ PA-C [address] [place], [address], [facility] 05/28/2024 15:35:03
--- OUTSIDE RECORDS SUMMARY | 2024-12-25 10:42 | XMS_ITS | Clinical Summary ---
Author Organization [facility] ([place], [place], [place], [place]) Address [address] [place] [address] Care Team Providers Care Almond Blancher Operator Name Role Phone Candy Carlos ATIYA Unavailable [phone] Daphnie Goss APRN Primary Care Provider [phone] Allergies No known active allergies Medications loratadine [...] Date Cody rded Speak language other than Burmese at home Not on file 07/01/2023 Want [...] HIV Screening 2004 Hepatitis C Screening 09/30/2007 Pneumococcal Vaccine: 0-49 Years (1 of 2 - PCV) 2008 Tobacco Cessation Counseling and Screening (12+) 01/1001/10/2023 COVID-19 VACCINE (1 - 2023- season) 2024 Lipid Panel 2024 DTAP/TDAP/TD VACCINES (2 - Td or Tdap) 12/10/2024 Influenza Vaccine (#1) 2025 Insurance [place] [address] [id number] R Care Teams Almond Blancher Operator Relationship Specialty Start Date End Date Daphnie Goss, SALES BROKER [address] [place] [address] PCP - General Nurse Practitioner 01/10/23 Candy Carlos, SALES BROKER [address] [facility] [address] [place] [address] Cardiology 12/13/22
[2024-12-25 14:46] LABS: PHA INR Fingerstick 2.0 (0.9-1.1)
== END 2024-12-25 14:48 ==
LOC: ACC 10:18
PROVIDERS: PCP Nurse Practitioner Family; Visit Provider Internal Medicine Adolescent Medicine
DX: Z95.2 Presence of prosthetic heart valve (principal)
CPT/HCPCS: 85610; 99211; G0463

== ENCOUNTER 2025-02-13 08:43 | Outpatient (CLI) | payer OTHER, SELFPAY ==
--- OUTSIDE RECORDS SUMMARY | 2025-02-13 09:00 | XMS_ITS | Clinical Summary ---
Author Organization [employer] [facility] ([place], [place], [place], [place]) Address [address] [place] [address] Care Team Providers Care Steamer Gum Candy Name Role Phone Candy Carlos ATIYA Unavailable [phone] Daphnie Goss APRN Primary Care Provider [phone] Allergies No known active allergies Medications loratadine [...] Date Cody rded Speak language other than Fijian at home Not on file 07/01/2023 Want [...] Insurance [place] [address] [phone] R Care Teams Steamer Gum Candy Relationship Specialty Start Date End Date Daphnie Goss, REAL ESTATE LEGAL ASSISTANT [address] [place] [address] PCP - General Nurse Practitioner 01/10/23 Candy Carlos, REAL ESTATE LEGAL ASSISTANT [address] [facility] [address] [place] [address] Cardiology 12/13/22
--- OUTSIDE RECORDS SUMMARY | 2025-02-13 09:00 | XMS_ITS | Clinical Summary ---
Author Organization Healthcare Address [address] [place] [address] Care Team Providers Care Budget Analyst Name Role Phone Unavailable Primary Care Provider [...]
--- OUTSIDE RECORDS SUMMARY | 2025-02-13 09:00 | XMS_ITS | Referral Summary ---
Author Organization [employer] ([place], [place], [place], [place]) Address [address] [place] [address] Care Team Providers Care Hand Packer Name Role Phone Candy Carlos ATIYA Unavailable [phone] Daphnie Goss APRN Primary Care Provider [phone] Allergies No known active allergies Medications loratadine [...] Date Cody rded Speak language other than Romansh at home Not on file 07/01/2023 Want [...] Not on file Insurance [employer] Care Teams Hand Packer Relationship Specialty Start Date End Date Daphnie Goss, DESK PENS ASSEMBLER [address] [place] [address] PCP - General Nurse Practitioner 01/10/23 Candy Carlos, DESK PENS ASSEMBLER [address] [facility] [address] [place] [address] [facility] 12/13/22
--- OUTSIDE RECORDS SUMMARY | 2025-02-13 09:00 | XMS_ITS | Clinical Summary ---
Author Organization [facility] Address [address] [place] [address] Care Team Providers Care Chopper Feeder Name Role Phone Juvencio Snow MD Primary Care Provider [phone] Allergies No known active allergies Medications warfarin (COUMADIN) 5 MG tablet 9mg Tuesday, , Tuesday 10mg Tuesday, Fridays Lovenox bridge starting 04/06/24 for surgery 8 Active warfarin (COUMADIN) 1 MG tablet 8 Active sertraline (ZOLOFT) 100 MG tablet Take 1 tablet by mouth Daily. Active cyclobenzaprine (FLEXERIL) 10 MG tablet Take 1 tablet by mouth 3 (Three) Times a Day As Needed for Muscle Spasms. Active Active Problems Problem Noted Date Diagnosed Date Aortic valve replaced 06/18/2019 LUIS (generalized anxiety disorder) 04/16/2016 Chronic rhinitis 02/03/2016 Family History Medical History Relation Name Comments Hyperlipidemia Father Hypertension Father Asthma Mother Relation Name Status Comments Father Alive Mother Alive Social History Tobacco Use Types Packs/Day Years Used Date Smoking Tobacco: Never Smokeless Tobacco: Former Chew Tobacco Cessation:Counseling Given: Not Answered Comments:Nicotine patches Alcohol Use Standard Drinks/Week Comments Yes 0 (1 standard drink = 0.6 oz pur e alcohol) occasionally Abuse Screen Answer Date Recorded Feels Unsafe at Home or Work/School no 04/13/2024 Feels Threatened by Someone no 1106/2023 Does Anyone Try to Keep You From Having Contact with Others or Doing Things Outside Your Home? no 04/13/2024 Physical Signs of Abuse Present no 04/13/2024 Housing Stability Answer Date Recorded Current Living Arrangements home 06/2023 Potentially Unsafe Housing Conditions Not on tresa e 04/13/2024 Disabilities Answer Date Recorded Difficulty Concentrating, Remembering or Making Decisions no 04/13/2024 Difficulty Managing Errands Independently no 04/13/2024 Education Answer Date Recorded Help with school or training? Not on file Preferred Language Algerian 04/06/2024 Sex and Gender Information Value Date Recorded Sex Assigned at Not on file Legal Sex Male 10:26 AM EDT Gender Identity Not on file Sexual Orientation Not on file Last Filed Vital Signs Vital Sign Reading Time Taken Comments Blood Pressure 126/78 04/13/2024 1:15 PM EDT Pulse 64 04/13/2024 1:15 PM EDT Temperature 36.6 C (97.9 F) 04/13/2024 11:44 AM EDT Respiratory Rate 16 04/13/2024 1:15 PM EDT Oxygen Saturation 94% 04/13/2024 1:15 PM EDT Inhaled Oxygen Concentration - - Weight 96.6 kg (213 lb 1.2 oz) 04/06/2024 9:46 A M EDT Height 185.4 cm (6' 1 ) 04/06/2024 9:46 AM EDT Body Mass Index 28.11 04/06/2024 9:46 AM EDT Plan of Treatment Health Maintenance Due Date Last Done Comments ANNUAL PHYSICAL 02/03/2016 HEPATITIS C SCREENING 02/03/2016 COVID-19 Vaccine (2023-2 5 season) 2024 TDAP/TD VACCINES (2 - Td or Tdap) 12/10/2024 12/10/2014 INFLUENZA VACCINE 03/13/2025 02/03/2019, 04/17/2018 Pneumococcal Vaccine 0-49 Aged Out No longer eligible based on patient's age to complete this topic Goals Goal Patient Goal Type Associated Problems Recent Progress Patient-Stated? 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 on X Hemost Abs Surgifoam Sz100 8x12 10mm - [id number] Implanted:Qty: 1 on 04/13/2024 by Fiorella You MD at [facility] Implant Left: Spine Lumbar ETHICON DIV [employer] J AND J [id number] 06/08/2025 1974 / / [id number] Wax Bone Hemo Lukens Sharpoint 2.5gm Wht - [id number] Implanted:Qty: 1 on 04/13/2024 by Fiorella You MD at [facility] Implant Left: Spine Lumbar [employer]IES MICHELLE [id number] 07/14/2028 901 / / [id number] Additional Health Concerns Active Problems Noted Date Diagnosed Date Autogenerated Problem 02/08/2025 Insurance [facility] Care Teams Chopper Feeder Relationship Specialty Start Date End Date Juvencio Snow MD [address] [place] [id number] PCP - General 04/23/15
--- OUTSIDE RECORDS SUMMARY | 2025-02-13 09:00 | XMS_ITS | Clinical Summary ---
Author Organization [facility] Address [address] [facility] [address] [place] [address] Phone Care Team Providers Care Coil Winder Strap Name Role Phone H, Nazanin Unavailable Unavailable Conditions or Problems Problem Name Problem Code Onset Date Status Entry Date Provider Comment Standard Description Annotate Aortic regurgitation 19568208 (SNOMED CT) 10/03 Active 10/03 Kelley Addison Aortic valve regurgitation Other specified complication of cardiac prosthetic devices, implants and grafts, subsequent encounter(s) T82.897D (ICD-10-CM) 10/03 Active 10/03 Kelley Addison Other specified complication of cardiac prosthetic devices, implants and grafts, subsequent encounter Presence of prosthetic heart valve Z95.2 (ICD-10-CM) 10/03 Active 10/03 Kelley Addison Presence of prosthetic heart valve History of PNA (recurrent) 773580767 (SNOMED CT) 10/03 Active 10/03 Kelley Addison History of recurrent pneumonia Medications Medication Instructions Start Date Stop Date Generic Name [facility] Provider MULTIVITAMIN ADULTS TABS by mouth daily 0 MULTIPLE VITAMINS-MINERA LS [id number] Terrence K FLONASE 50 MCG/ACT NASAL SUSPENSION daily 0 FLUTICASONE PROPIONATE [id number] Terrence K ASPIRIN 81 MG ORAL TABLET by mouth daily 0 ASPIRIN [id number] Terrence K Medications Administered No information available. Allergies, Adverse Reactions, Alerts No information available. 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
[2025-02-13 10:24] LABS: PHA INR Fingerstick 2.2 (0.9-1.1)
== END 2025-02-13 10:27 ==
LOC: ACC 08:44
PROVIDERS: PCP Nurse Practitioner Family; Visit Provider Internal Medicine Adolescent Medicine
DX: Z95.2 Presence of prosthetic heart valve (principal)
CPT/HCPCS: 85610; 99211; G0463

== ENCOUNTER 2025-05-01 11:44 | Outpatient (CLI) | payer OTHER, SELFPAY ==
--- OUTSIDE RECORDS SUMMARY | 2025-05-01 12:55 | XMS_ITS | Referral Summary ---
Author Organization [employer] ([place], [place], [place], [place], [place]) Address [address] [place] [address] Care Team Providers Care Special Forces Specialist Name Role Phone Candy Carlos ATIYA Unavailable [phone] Daphnie Goss APRN Primary Care Provider [phone] Allergies No known active allergies Medications loratadine [...] Date Cody rded Speak language other than Macedonian at home Not on file 07/01/2023 Want [...] Not on file Insurance [employer] Care Teams Special Forces Specialist Relationship Specialty Start Date End Date Daphnie Goss, FOOD WRITER [address] [place] [address] PCP - General Nurse Practitioner 01/10/23 Candy Carlos, ATIYA [address] [facility] [address] [place] [address] [facility] 12/13/22
--- OUTSIDE RECORDS SUMMARY | 2025-05-01 12:55 | XMS_ITS | Clinical Summary ---
Author Organization [facility] Address [address] [facility] [address] [place] [address] Phone Care Team Providers Care Chiropractic Assistant Name Role Phone H, Nazanin Unavailable Unavailable Conditions or Problems Problem Name Problem Code Onset Date Status Entry Date Provider Comment Standard Description Annotate Aortic regurgitation 94996595 (SNOMED CT) 10/03 Active 10/03 Kelley Addison Aortic valve regurgitation Other specified complication of cardiac prosthetic devices, implants and grafts, subsequent encounter(s) T82.897D (ICD-10-CM) 10/03 Active 10/03 Kelley Addison Other specified complication of cardiac prosthetic devices, implants and grafts, subsequent encounter Presence of prosthetic heart valve Z95.2 (ICD-10-CM) 10/03 Active 10/03 Kelley Addison Presence of prosthetic heart valve History of PNA (recurrent) 516668972 (SNOMED CT) 10/03 Active 10/03 Kelley Addison History of recurrent pneumonia Medications Medication Instructions Start Date Stop Date Generic Name [facility] Provider MULTIVITAMIN ADULTS TABS by mouth daily 0 MULTIPLE VITAMINS-MINERA LS [id number] Terrence K FLONASE 50 MCG/ACT NASAL SUSPENSION daily 0 FLUTICASONE PROPIONATE [id number] Terrence K ASPIRIN 81 MG ORAL TABLET by mouth daily 0 ASPIRIN 42037921147 Terrence K Medications Administered No information available. Allergies, Adverse Reactions, Alerts No information available. 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
--- OUTSIDE RECORDS SUMMARY | 2025-05-01 12:56 | XMS_ITS | Clinical Summary ---
Author Organization [employer] ([place], [place], [place], [place], [place]) Address [address] [place] [address] Care Team Providers Care Agency Trainer Name Role Phone Candy Carlos ATIYA Unavailable [phone] Sammie oGssah ATIYA Primary Care Provider [phone] Allergies No known active allergies Medications loratadine [...] Date Cody rded Speak language other than Lithuanian at home Not on file 07/01/2023 Want [...] Tobacco Cessation Counseling and Screening (12+) 01/1001/10/2023 Lipid Panel 2024 DTAP/TDAP/TD VACCINES (2 - Td or Tdap) 12/10/2024 COVID-19 VACCINE (1 - season) 2025 Influenza Vaccine (#1) [address] [place] [address] [id number] R Care Teams Agency Trainer Relationship Specialty Start Date End Date Daphnie Goss, BASTING MACHINE OPERATOR [address] [place] [address] PCP - General Nurse Practitioner 01/10/23 Candy Carlos, BASTING MACHINE OPERATOR [address] [facility] [address] [place] [address] Cardiology 12/13/22
--- OUTSIDE RECORDS SUMMARY | 2025-05-01 12:56 | XMS_ITS | Clinical Summary ---
Author Organization [facility] Address [address] [place] [address] Care Team Providers Care Explosive Technician Name Role Phone Juvencio Snow MD Primary Care Provider [phone] Allergies No known active allergies Medications warfarin [...] or training? Not on file Preferred Language Senegalese 04/06/2024 Sex and Gender Information Value Date [...] ANNUAL PHYSICAL 02/03/2016 HEPATITIS C SCREENING 02/03/2016 TDAP/TD VACCINES (2 - Td or Tdap) 12/10/2024 12/10/2014 INFLUENZA VACCINE 01/11/2025 02/03/2019, 04/17/2018 Pneumococcal Vaccine 0-49 Aged Out No longer eligible based on patient's age to complete this topic Goals Goal Patient Goal Type Associated Problems Recent Progress Patient-Stated? 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 on X Hemost Abs Surgifoam Sz100 8x12 10mm - [id number] Implanted:Qty: 1 on 04/13/2024 by Fiorella You MD at [facility] Implant Left: Spine Lumbar ETH[employer]ON DIV [employer] J AND J [id number] 06/08/2025 1974 / / [id number] Wax Bone Hemo Lucathies Sharpoint 2.5gm t - [id number] Implanted:Qty: 1 on 04/13/2024 by Fiorella You MD at [facility] Implant Left: Spine Lumbar [employer] MICHELLE [id number] 07/14/2028 901 / / [id number] Additional Health Concerns Active Problems Noted Date Diagnosed Date Autogenerated Problem 02/08/[address] [place] [place] [address] [facility] Care Teams Explosive Technician Relationship Specialty Start Date End Date Juvencio Snow MD [address] [place] [address] [facility] - General 04/23/15
--- OUTSIDE RECORDS SUMMARY | 2025-05-01 12:56 | XMS_ITS | Clinical Summary ---
Author Organization [facility] Address [address] [id number] Care Team Providers Care Circular Knitter Helper Name Role Phone Unavailable Primary Care Provider [...]
[2025-05-01 13:30] LABS: PHA INR Fingerstick 1.8 (0.9-1.1)
== END 2025-05-01 13:36 ==
LOC: ACC 11:45
PROVIDERS: PCP Nurse Practitioner Family; Visit Provider Internal Medicine Adolescent Medicine
DX: Z79.01 Long term (current) use of anticoagulants (principal); Z95.2 Presence of prosthetic heart valve
CPT/HCPCS: 85610; 99211; G0463

== ENCOUNTER 2025-06-10 08:24 | Outpatient (CLI) | payer OTHER, SELFPAY ==
--- OUTSIDE RECORDS SUMMARY | 2025-06-10 08:26 | XMS_ITS | Clinical Summary ---
Author Organization [facility] Address [address] [facility] [address] [place] [address] Phone Care Team Providers Care Dray Driver Name Role Phone H, Nazanin Unavailable Unavailable Conditions or Problems Problem Name Problem Code Onset Date Status Entry Date Provider Comment Standard Description Annotate Aortic regurgitation [id number] (SNOMED CT) 10/03 Active 10/03 Kelley Addison Aortic valve regurgitation Other specified complication of cardiac prosthetic devices, implants and grafts, subsequent encounter(s) T82.897D (ICD-10-CM) 10/03 Active 10/03 Kelley Addison Other specified complication of cardiac prosthetic devices, implants and grafts, subsequent encounter Presence of prosthetic heart valve Z95.2 (ICD-10-CM) 10/03 Active 10/03 Kelley Addison Presence of prosthetic heart valve History of PNA (recurrent) 308506373 (SNOMED CT) 10/03 Active 10/03 Kelley Addison History of recurrent pneumonia Medications Medication Instructions Start Date Stop Date Generic Name [facility] Provider MULTIVITAMIN ADULTS TABS by mouth daily 0 MULTIPLE VITAMINS-MINERA LS [id number] Terrence K FLONASE 50 MCG/ACT NASAL SUSPENSION daily 0 FLUTICASONE PROPIONATE [id number] Terrence K ASPIRIN 81 MG ORAL TABLET by mouth daily 0 ASPIRIN 43773391357 Terrence K Medications Administered No information available. Allergies, Adverse Reactions, Alerts No information available. 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
--- OUTSIDE RECORDS SUMMARY | 2025-06-10 08:26 | XMS_ITS | Clinical Summary ---
Author Organization [facility] Address [address] [id number] Care Team Providers Care Federal Appellate Clerk Name Role Phone Unavailable Primary Care Provider [...]
--- OUTSIDE RECORDS SUMMARY | 2025-06-10 08:26 | XMS_ITS | Clinical Summary ---
Author Organization [employer] ([place], [place], [place], [place], [place]) Address [address] [place] [address] Care Team Providers Care Commercial Collector Name Role Phone Cadny Carlos ATIYA Unavailable [phone] Sammie Gossah ATIYA Primary Care Provider [phone] Allergies No known active allergies Medications loratadine [...] Date Cody rded Speak language other than Welsh at home Not on file 07/01/2023 Want [...] [address]25 [place] [address] [place] [id number] R Care Teams Commercial Collector Relationship Specialty Start Date End Date Daphnie Goss, CENTER MEDICAL SPECIALIST [address] [place] [address] PCP - General Nurse Practitioner 01/10/23 Candy Carlos, CENTER MEDICAL SPECIALIST [address] [facility] [address] [place] [address] Cardiology 12/13/22
--- OUTSIDE RECORDS SUMMARY | 2025-06-10 08:26 | XMS_ITS | Clinical Summary ---
Author Organization [facility] Address [address] [place] [address] Care Team Providers Care Cold Roller Name Role Phone Juvencio Snow MD Primary Care Provider [phone] Allergies No known active allergies Medications warfarin [...] or training? 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 on X Hemost Abs Surgifoam Sz100 8x12 10mm - [id number] Implanted:Qty: 1 on 04/13/2024 by Fiorella You MD at [facility] Implant Left: Spine Lumbar ETH[employer]ON DIV OF J AND J [id number] 06/08/2025 1974 / / [id number] Wax Bone Hemo Lukens Sharpoint 2.5gm t - [id number] Implanted:Qty: 1 on 04/13/2024 by Fiorella You MD at [facility] Implant Left: Spine Lumbar [employer]TIES MICHELLE [id number] 07/14/2028 901 / / [id number] Insurance [facility] Care Teams Cold Roller Relationship Specialty Start Date End Date Juvencio Snow MD [address] [place] [address] PCP - General 04/23/15
--- OUTSIDE RECORDS SUMMARY | 2025-06-10 08:26 | XMS_ITS | Referral Summary ---
Author Organization [employer] ([place], [place], [place], [place], [place]) Address [address] [place] [address] Care Team Providers Care Fisher Gill Net Name Role Phone Candy Carlos ATIYA Unavailable [phone] Daphnie Goss APRN Primary Care Provider [phone] Allergies No known active allergies Medications loratadine [...] Date Cody rded Speak language other than Greek at home Not on file 07/01/2023 Want [...] Not on file Insurance [employer] Care Teams Fisher Gill Net Relationship Specialty Start Date End Date Daphnie Goss, SHEET METAL PRODUCTION WORKER [address] [place] [address] PCP - General Nurse Practitioner 01/10/23 Candy Carlos, ATIYA [address] [facility] [address] [place] [address] [facility] 12/13/22
[2025-06-10 08:47] LABS: PHA INR Fingerstick 2.4 (0.9-1.1)
== END 2025-06-10 08:52 ==
LOC: ACC 08:24
PROVIDERS: PCP Nurse Practitioner Family; Visit Provider Internal Medicine Adolescent Medicine
DX: Z79.01 Long term (current) use of anticoagulants (principal)
CPT/HCPCS: 85610; 99211; G0463